=== PATIENT | female | born 1935 | race Caucasian/White ===

== ENCOUNTER 2018-12-21 13:31 | Inpatient (IN) | payer MEDICARE ==
[~2018-12-21] VITALS: Ht 157.5 cm; Wt 25.0 kg
--- NOTE | 2018-12-21 13:40 | NUR ---
ED Nurse Note: patient was brought by ambulance complaining of SOB, during assessment O2 sat was 80, patient was placed on 2 L of oxygen. AAO x 4, has unsteady gait, skin is dry intact. patient was placed on gown and connected to the monitor.
[2018-12-21] MEDS ORDERED: Nitroglycerin 2% oint pkt TOPIC ONE (13:45)
[2018-12-21 13:47] VITALS: BP 142/68
[2018-12-21] MEDS ORDERED: POTASSIUM CHLO20 ME1 ORAL (13:48)
[2018-12-21] MEDS ORDERED: PAMELOR25 MG ORAL (13:48)
[2018-12-21] MEDS ORDERED: ATORVASTATIN CA40 MG ORAL (13:48)
[2018-12-21] MEDS ORDERED: ELIQUIS2.5 MG PO (13:48)
[2018-12-21] MEDS ORDERED: TORSEMIDE10 MG PO (13:48)
[2018-12-21] MEDS ORDERED: DIGOXIN0.125 MG/2 ORAL (13:48)
[2018-12-21] MEDS ORDERED: LIBRIUM25 MG ORAL (13:48)
[2018-12-21] MEDS ORDERED: OMEPRAZOLE20 M2 ORAL (13:48)
[2018-12-21] MEDS ORDERED: AMLODIPINE BESY10 MG ORAL (13:48)
[2018-12-21] MEDS ORDERED: DICLOFENAC SODI25 MG ORAL (13:48)
[2018-12-21] MEDS ORDERED: ASPIR-LOW81 MG ORAL (13:48)
--- NOTE | 2018-12-21 13:48 | Emergency Room Report ---
History of Present Illness General Chief Complaint: Dyspnea/Respdistress Source: Patient, EMS Present Illness HPI Patient presents with 3 weeks of increasing shortness of breath. She reports orthopnea and dyspnea on exertion. In addition she has edema in her legs. Her doctor told her this morning that she has congestive heart failure. She's taking Lasix 10 mg but she feels is not strong enough. The patient has a history of atrial fibrillation. She's on Eliquis. The patient's had open heart surgery 4 years ago. She denies chest pain. She' s felt cold but denies fever. She denies nausea vomiting diarrhea dysuria. No anxiety or depression. Allergies: Coded Allergies: No Known Allergies (Unverified , 12/21/18) Patient History Past Medical History: see triage record Past Surgical History: CABG Social History: Denies: smoking - former Social History Narrative Born in [place] - assisted living Reviewed Nursing Documentation: PMH: Agreed; PSxH: Agreed Nursing Documentation-PMH Hx Cardiac Problems: Yes Review of Systems All Other Systems: negative except mentioned in HPI Physical Exam Vital Signs Date Time Temp Pulse Resp B/P (MAP) Pulse Ox O2 Delivery O2 Flow Rate FiO2 12/21/18 13:25 97.9 63 16 134/80 96 Nasal Cannula 4.0 Sp02 EP Interpretation: reviewed, abnormal - Interpreted as low by me General Appearance: well appearing, no apparent distress, GCS 15, thin Head: normocephalic Eyes: bilateral eye normal inspection, bilateral eye PERRL ENT: moist mucus membranes Neck: supple Respiratory: no rhonchi, no respiratory distress, no accessory muscle use, decreased breath sounds - Left, rales Cardiovascular #1: regular rate, rhythm, edema - 1+ bilaterally Cardiovascular #2: 2+ radial (R) Gastrointestinal: normal inspection, normal bowel sounds, non tender, no mass, non-distended Musculoskeletal: back normal, gait/station normal, normal range of motion Neurologic: alert, oriented x3, grossly normal Psychiatric: mood/affect normal Skin: normal inspection, warm/dry Medical Decision Making Diagnostic Impression: Primary Impression: CHF (congestive heart failure) Qualified Codes: I50.9 - Heart failure, unspecified Additional Impressions: NSTEMI (non-ST elevated myocardial infarction) Pleural effusion Atrial fibrillation Qualified Codes: I48.91 - Unspecified atrial fibrillation ER Course Patient presents with 3 weeks of increasing dyspnea without chest pain. Differential includes acute microinfarction, congestive heart failure, or embolus amongst others. The patient is taking L requests and therefore pulmonary bolus and is less likely. Based on her exam she is in heart failure. Evaluation will be with EKG, chest x-ray and labs. The patient will be given a dose of Lasix and also Nitrol paste. Patient is placed on a narrative writer. EKG with atrial fibrillation without acute changes. Chest x-ray with congestive failure and a large left-sided effusion. When the patient is told about atrial fibrillation she queries "Again? Lab called with positive troponin and aspirin is ordered. Patient diuresing. Patient improved but needs continued cardiac monitoring and repeat troponin determinations. Admit to telemetry Laboratory Tests Test 12/21/18 14:00 12/21/18 14:48 12/21/18 18:45 12/22/18 05:05 White Blood Count 5.3 K/UL (4.8-10.8) 5.0 K/UL (4.8-10.8) Red Blood Count 3.97 M/UL (4.20-5.40) L 3.60 M/UL (4.20-5.40) L Hemoglobin 11.2 G/DL (12.0-16.0) L 10.2 G/DL (12.0-16.0) L Hematocrit 35.9 % (37.0-47.0) L 32.8 % (37.0-47.0) L Mean Corpuscular Volume 90 FL (80-99) 91 FL (80-99) Mean Corpuscular Hemoglobin 28.3 PG (27.0-31.0) 28.3 PG (27.0-31.0) Mean Corpuscular Hemoglobin Concent 31.3 G/DL (32.0-36.0) L 31.1 G/DL (32.0-36.0) L Red Cell Distribution Width 16.9 % (11.6-14.8) H 16.9 % (11.6-14.8) H Platelet Count 327 K/UL (150-450) 275 K/UL (150-450) Mean Platelet Volume 5.2 FL (6.5-10.1) L 5.3 FL (6.5-10.1) L Neutrophils (%) (Auto) 81.7 % (45.0-75.0) H 81.0 % (45.0-75.0) H Lymphocytes (%) (Auto) 6.2 % (20.0-45.0) L 6.7 % (20.0-45.0) L Monocytes (%) (Auto) 8.8 % (1.0-10.0) 7.6 % (1.0-10.0) Eosinophils (%) (Auto) 1.7 % (0.0-3.0) 3.2 % (0.0-3.0) H Basophils (%) (Auto) 1.7 % (0.0-2.0) 1.5 % (0.0-2.0) Prothrombin Time 12.4 SEC (9.30-11.50) H Prothrombin Time INR 1.2 (0.9-1.1) H PTT 29 SEC (23-33) Sodium Level 136 MMOL/L (136-145) 141 MMOL/L (136-145) Potassium Level 5.0 MMOL/L (3.5-5.1) 4.0 MMOL/L (3.5-5.1) Chloride Level 102 MMOL/L (98-107) 104 MMOL/L (98-107) Carbon Dioxide Level 24 MMOL/L (21-32) 30 MMOL/L (21-32) Anion Gap 10 mmol/L (5-15) 7 mmol/L (5-15) Blood Urea Nitrogen 23 mg/dL (7-18) H 20 mg/dL (7-18) H Creatinine 1.2 MG/DL (0.55-1.30) 1.3 MG/DL (0.55-1.30) Estimate Glomerular Filtration Rate mL/min (>60) mL/min (>60) Glucose Level 94 MG/DL (74-106) 100 MG/DL (74-106) Calcium Level 8.8 MG/DL (8.5-10.1) 8.0 MG/DL (8.5-10.1) L Total Bilirubin 0.3 MG/DL (0.2-1.0) Aspartate Amino Transferase (AST) 38 U/L (15-37) H Alanine Aminotransferase (ALT) 23 U/L (12-78) Alkaline Phosphatase 130 U/L (46-116) H Total Creatine Kinase 60 U/L (26-308) Troponin I 0.068 ng/mL (0.000-0.056) 0.074 ng/mL (0.000-0.056) 0.055 ng/mL (0.000-0.056) Pro-B-Type Natriuretic Peptide 3072 pg/mL (0-125) H Total Protein 8.1 G/DL (6.4-8.2) Albumin 3.1 G/DL (3.4-5.0) L 2.9 G/DL (3.4-5.0) L Globulin 5.0 g/dL Albumin/Globulin Ratio 0.6 (1.0-2.7) L Urine Color Pale yellow Urine Appearance Clear Urine pH 6 (4.5-8.0) Urine Specific Orange 1.005 (1.005-1.035) Urine Protein Negative (NEGATIVE) Urine Glucose (UA) Negative (NEGATIVE) Urine Ketones Negative (NEGATIVE) Urine Blood Negative (NEGATIVE) Urine Nitrite Negative (NEGATIVE) Urine Bilirubin Negative (NEGATIVE) Urine Urobilinogen Normal MG/DL (0.0-1.0) Urine Leukocyte Esterase Negative (NEGATIVE) Phosphorus Level 4.2 MG/DL (2.5-4.9) Test 12/22/18 10:45 Prothrombin Time 12.6 SEC (9.30-11.50) H Prothrombin Time INR 1.2 (0.9-1.1) H PTT 31 SEC (23-33) EKG Diagnostic Results Rate: other Rhythm: other - Atrial fibrillation ST Segments: no acute changes ASA given to the pt in ED: Yes Rhythm Strip Diag. Results EP Interpretation: yes Rhythm: no PVC's, no ectopy, other - Atrial fibrillation Chest X-Ray Diagnostic Results Chest X-Ray Diagnostic Results : Chest X-Ray Ordered: Yes # of Views/Limited/Complete: 1 View Indication: Shortness of Breath EP Interpretation: Yes Interpretation: no pneumothorax, other - chf and L effusion Impression: Other Electronically Signed by: Electronically signed by Yash Lawrence MD Last Vital Signs Date Time Temp Pulse Resp B/P (MAP) Pulse Ox O2 Delivery O2 Flow Rate FiO2 12/22/18 08:54 78 125/82 12/22/18 08:02 Non-Rebreather 15.0 100 12/22/18 08:00 97.6 14 100 Status: improved Disposition: ADMITTED INPATIENT Condition: Serious Yash Lawrence MD Dec 21, 2018 13:48
[2018-12-21 14:07] LABS: BASOPHILS % (AUTO) 1.7 % (0.0-2.0); EOSINOPHILS % (AUTO) 1.7 % (0.0-3.0); HEMATOCRIT 35.9 % (37.0-47.0); HEMOGLOBIN 11.2 G/DL (12.0-16.0); LYMPHOCYTES % (AUTO) 6.2 % (20.0-45.0); MEAN CORPUSCULAR VOLUME 90 FL (80-99); MONOCYTES % (AUTO) 8.8 % (1.0-10.0); NEUTROPHILS % (AUTO) 81.7 % (45.0-75.0); PLATELET COUNT 327 K/UL (150-450); RED BLOOD COUNT 3.97 M/UL (4.20-5.40); RED CELL DISTRIBUTION WIDTH 16.9 % (11.6-14.8); WHITE BLOOD COUNT 5.3 K/UL (4.8-10.8)
[2018-12-21 14:16] LABS: ANION GAP 10 mmol/L (5-15); BLOOD UREA NITROGEN 23 mg/dL (7-18); CALCIUM 8.8 MG/DL (8.5-10.1); CARBON DIOXIDE 24 MMOL/L (21-32); CHLORIDE 102 MMOL/L (98-107); CREATININE 1.2 MG/DL (0.55-1.30); INR 1.2 (0.9-1.1); SODIUM 136 MMOL/L (136-145)
[2018-12-21 14:27] LABS: ALANINE AMINOTRANSFERASE 23 U/L (12-78); ALBUMIN 3.1 G/DL (3.4-5.0); ALBUMIN/GLOBULIN RATIO 0.6 (1.0-2.7); ALKALINE PHOSPHATASE 130 U/L (46-116); ASPARTATE AMINO TRANSFERASE 38 U/L (15-37); BILIRUBIN,TOTAL 0.3 MG/DL (0.2-1.0); CREATINE KINASE 60 U/L (26-308)
--- NOTE | 2018-12-21 14:35 | Diagnostic Imaging Report ---
Indication: Cough Technique: One view of the chest Comparison: none Findings: There is a large left pleural effusion. There may be a small right pleural effusion. There is equivocal minimal interstitial congestion. No focal airspace consolidation Impression: Large left and possible small right pleural effusions Equivocal minimal interstitial congestion-correlate with clinical findings
[2018-12-21 15:08] LABS: APPEARANCE,URINE CLEAR; BILIRUBIN, URINE NEGATIVE (NEGATIVE); COLOR,URINE PALE YELLOW; GLUCOSE, URINE (UA) NEGATIVE (NEGATIVE); KETONES,URINE NEGATIVE (NEGATIVE); LEUKOCYTE ESTERASE ,URINE NEGATIVE (NEGATIVE); NITRITE,URINE NEGATIVE (NEGATIVE); PH,URINE 6 (4.5-8.0); PROTEIN,URINE NEGATIVE (NEGATIVE); UROBILINOGEN,URINE NORMAL MG/DL (0.0-1.0)
--- NOTE | 2018-12-21 15:20 | NUR ---
ED Nurse Note: patient void 400mL
[2018-12-21 16:13] VITALS: BP 119/50
--- NOTE | 2018-12-21 16:14 | NUR ---
ED Nurse Note: patient in the bed sleeping, VSS
--- NOTE | 2018-12-21 16:23 | NUR ---
ED Nurse Note: patient will be admited to SDU , gave report to SUMI Liz
--- NOTE | 2018-12-21 16:32 | NUR ---
NURSE NOTES: Received patient from [facility]. On 2L nasal cannula. Her 02 sat was 80%. Changed it to Nonrebreather mask to 15L and 02 sat was 94%. Patient was able to ambulate from the ER gurney to the bed. AOx4. Verbally responsive. IV site is asymptomatic. Per ER nurse, swabs were done and sent to the lab. Will call Dr. Mckeon for admission orders.
--- NOTE | 2018-12-21 16:32 | NUR ---
ED Nurse Note: report was given to Shalonda patient transfered to SDU.all belongings were given to the patient VSS
[2018-12-21 16:45] VITALS: BP 105/75
--- NOTE | 2018-12-21 18:00 | NUR ---
NURSE NOTES: Called Dr. Mckeon for admission orders. Awaiting for call back.
[2018-12-21] MEDS ORDERED: Albuterol/Ipratropium 3ml neb HHN PRN (18:30)
--- NOTE | 2018-12-21 18:45 | NUR ---
CASE MANAGEMENT: INITIAL REVIEW 12/21/2018 83 YO Karolina SULLIVAN FROM [facility] CC: DYSPNEA PMHx: CABG SI:COPD EXACERBATION. NSTEMI T 97.9 HR 63 RR 16 B/P 134/80 SATS 96% ON 4L/NC BUN 23 AST 38 ALP 130 TROPONIN 0.068 BNP 3072 IS:NITRO TOP X1 LASIX IV X1 ASA PO X1 PATIENT ADMITTED TO [facility] 12/21/2018 @ 2586 DCP: PATIENT TO BE DISCHARGED TO SNF ONCE MEDICALLY CLEARED. PLAN OF CARE: VENOUS DUPLEX XRAY 2D ECHO Addendum: 12/23/18 at 0810 by Shari Aguila CM INTERQUAL MET FOR ACUTE
--- NOTE | 2018-12-21 19:15 | NUR ---
NURSE NOTES: Received report from Matty Estrada RN. Patient is awake in bed, A/O x4. No s/s of acute distress noted. telemetry monitor shows a. fib. Saturating well on 15L O2 via non-rebreather mask. Right AC 20g IV saline lock, intact and patent. Bed locked in lowest position with side rails up x2. Call light left within reach. Will continue to monitor.
--- NOTE | 2018-12-21 19:15 | NUR ---
HAND-OFF: Report given to SUMI Pinto. Patient stable. Aware of the current Troponin level and will let Dr. Amor know.
--- NOTE | 2018-12-21 19:37 | NUR ---
NURSE NOTES: Dr. Zuleyma MD made aware of patient's troponin trending up to 0.074. No new orders at this time. Will continue to monitor patient.
[2018-12-21 20:00] VITALS: BP 127/53
--- NOTE | 2018-12-21 20:47 | Cardiology Progress Note ---
Assessment/Plan Assessment/Plan afib perm on anticoag mvr biopropthetic p htn system htn anxiety cad neg ischmemia eval 03/2018 unkown detail left plrural effusion may need thoracentesis echo dirutic repeat enzyme follwo katiana [id number] Objective Last 24 Hour Vital Signs Date Time Temp Pulse Resp B/P (MAP) Pulse Ox O2 Delivery O2 Flow Rate FiO2 12/21/18 19:10 Non-Rebreather 15.0 12/21/18 19:10 92 Non-Rebreather 15.0 12/21/18 18:42 78 12/21/18 16:45 96.8 74 24 105/75 (85) 92 12/21/18 16:39 Non-Rebreather 15.0 12/21/18 16:32 98.0 88 18 121/72 100 Room Air 12/21/18 16:13 97.8 73 13 119/50 95 Nasal Cannula 2.0 12/21/18 14:03 142/68 12/21/18 13:47 98.0 67 16 142/68 98 Nasal Cannula 2.0 12/21/18 13:45 67 16 Nasal Cannula 4.0 12/21/18 13:25 97.9 63 16 134/80 96 Nasal Cannula 4.0 Laboratory Tests Test 12/21/18 14:00 12/21/18 14:48 12/21/18 18:45 White Blood Count 5.3 K/UL (4.8-10.8) Red Blood Count 3.97 M/UL (4.20-5.40) L Hemoglobin 11.2 G/DL (12.0-16.0) L Hematocrit 35.9 % (37.0-47.0) L Mean Corpuscular Volume 90 FL (80-99) Mean Corpuscular Hemoglobin 28.3 PG (27.0-31.0) Mean Corpuscular Hemoglobin Concent 31.3 G/DL (32.0-36.0) L Red Cell Distribution Width 16.9 % (11.6-14.8) H Platelet Count 327 K/UL (150-450) Mean Platelet Volume 5.2 FL (6.5-10.1) L Neutrophils (%) (Auto) 81.7 % (45.0-75.0) H Lymphocytes (%) (Auto) 6.2 % (20.0-45.0) L Monocytes (%) (Auto) 8.8 % (1.0-10.0) Eosinophils (%) (Auto) 1.7 % (0.0-3.0) Basophils (%) (Auto) 1.7 % (0.0-2.0) Prothrombin Time 12.4 SEC (9.30-11.50) H Prothromb Time International Ratio 1.2 (0.9-1.1) H Activated Partial Thromboplast Time 29 SEC (23-33) Sodium Level 136 MMOL/L (136-145) Potassium Level 5.0 MMOL/L (3.5-5.1) Chloride Level 102 MMOL/L (98-107) Carbon Dioxide Level 24 MMOL/L (21-32) Anion Gap 10 mmol/L (5-15) Blood Urea Nitrogen 23 mg/dL (7-18) H Creatinine 1.2 MG/DL (0.55-1.30) Estimat Glomerular Filtration Rate mL/min (>60) Glucose Level 94 MG/DL (74-106) Calcium Level 8.8 MG/DL (8.5-10.1) Total Bilirubin 0.3 MG/DL (0.2-1.0) Aspartate Amino Transf (AST/SGOT) 38 U/L (15-37) H Alanine Aminotransferase (ALT/SGPT) 23 U/L (12-78) Alkaline Phosphatase 130 U/L (46-116) H Total Creatine Kinase 60 U/L (26-308) Troponin I 0.068 ng/mL (0.000-0.056) 0.074 ng/mL (0.000-0.056) Pro-B-Type Natriuretic Peptide 3072 pg/mL (0-125) H Total Protein 8.1 G/DL (6.4-8.2) Albumin 3.1 G/DL (3.4-5.0) L Globulin 5.0 g/dL Albumin/Globulin Ratio 0.6 (1.0-2.7) L Urine Color Pale yellow Urine Appearance Clear Urine pH 6 (4.5-8.0) Urine Specific Edwards 1.005 (1.005-1.035) Urine Protein Negative (NEGATIVE) Urine Glucose (UA) Negative (NEGATIVE) Urine Ketones Negative (NEGATIVE) Urine Blood Negative (NEGATIVE) Urine Nitrite Negative (NEGATIVE) Urine Bilirubin Negative (NEGATIVE) Urine Urobilinogen Normal MG/DL (0.0-1.0) Urine Leukocyte Esterase Negative (NEGATIVE) Mike Long MD Dec 21, 2018 20:47
[2018-12-21] MEDS: Heparin 5000 units/ml inj SUBQ SCH (21:46)
[2018-12-22] VITALS: BP 135/51
[2018-12-22 04:00] VITALS: BP 122/73
--- NOTE | 2018-12-22 05:00 | Consultation ---
DATE OF CONSULTATION: 12/21/2018 CARDIOLOGY CONSULTATION CONSULTING PHYSICIAN: Mike Long M.D. REFERRING PHYSICIAN: Mariya Amor M.D. REASON FOR REFERRAL: Shortness of breath and congestive heart failure. HISTORY OF PRESENT ILLNESS: This is an 83-year-old female, who is here to discuss some medical problems. The patient apparently has been having shortness of breath for the past two weeks. Her primary care doctor told her to go to the emergency room. So, she came up today. She does not have any PND or orthopnea. No palpitation. No pain in her chest although she does indicate occasionally she has some squeezing sensation although she does not recall when those occur, how long they last, or what the nature of this symptom is. If she cannot sleep she gets up and walks around. PAST MEDICAL HISTORY: Positive for history of high cholesterol. No diabetes. No hypertension. No heart attack. She does have uterine cancer, status post radiation. No stroke, hepatitis, or tuberculosis. No asthma or emphysema. No ulcers. No kidney problems, liver problems, or thyroid problems. She has history of anemia. No HIV/AIDS or blood clots or bleeding disorder. No history of heart failure. She does have a history of heart murmur. The patient has a history of atrial fibrillation. She has a history of coronary artery disease and reportedly she had a negative stress test in March 2018, carotid stenosis bilaterally 50% to 60%, history of bioprosthetic mitral valve replacement, systemic hypertension, history of peptic ulcer disease, pulmonary hypertension, and hyperlipidemia as documented in the patient's old chart as far as past medical problems. She also has a history of anxiety. MEDICATIONS: Norvasc 10 mg daily, aspirin 81 mg, Lipitor 40 mg, chlordiazepoxide 25 mg daily, diclofenac cream, digoxin 0.125 mg, Eliquis 2.5 mg twice daily, nortriptyline 50 mg daily, omeprazole 20 mg, potassium chloride 20 mEq daily, psyllium, and torsemide 10 mg every evening. ALLERGIES: She is not allergic to any medications. SOCIAL HISTORY: She used to smoke and drink some 50 years ago. Does not do any more. She lives in a convalescent facility. REVIEW OF SYSTEMS: GASTROINTESTINAL: Positive for constipation. GENITOURINARY: Negative. PULMONARY: Denies any coughing or wheezing. CONSTITUTIONAL: Though she has had some chills, no fevers. NEUROLOGICAL: Negative. PHYSICAL EXAMINATION: GENERAL: Shows to be an elderly female, in no respiratory distress. She is on a face mask and her oxygen saturation drops down to 88%. NECK: Supple. No jugular venous distention. LUNGS: Clear to auscultation and percussion. To the point I cannot evaluate as the patient is lying down for venous duplex study. CARDIAC: Slightly irregular rhythm. She does have a systolic ejection murmur noted at the aortic valve. No RV lifts, heaves, or thrills. ABDOMEN: Soft, nontender. Positive bowel sounds. EXTREMITIES: There is no edema. NEUROLOGIC: She is awake, alert, responsive, and in no respiratory distress. LABORATORY AND DIAGNOSTIC DATA: White count 5.3, hemoglobin 11.2, and platelet count of 327. Sodium is 136, potassium 5.0, chloride 102, bicarb 24, BUN of 23, creatinine 1.2, and glucose of 94. AST of 38, ALT of 23, and alkaline phosphatase was 130. ProBNP of 3072. Troponin 0.068, 0.074. INR is 1.1 and PTT of 28. Urinalysis is unremarkable. Chest x-ray performed in the emergency room shows large left pleural effusion, just small right pleural effusion, which is equivocal and interstitial congestion and no focal consolidation have been noted. Her electrocardiogram shows atrial fibrillation, ventricular response appears to be controlled. There is some delay in R-wave progression suggestive of possible old anterior injury. There are some biphasic T-waves in II, III, and aVF being noted. Her chest x-ray shows also a bioprosthesis in the mitral valve position, sternal wires, and left-sided pleural effusion. ASSESSMENT AND PLAN: 1. Dyspnea. 2. Pleural effusion. 3. History of mitral valve replacement, bioprosthetic. 4. Aortic stenosis. 5. History of coronary artery disease. Reportedly negative stress test in March 2018, details of which are unknown. 6. Systemic hypertension. 7. Pulmonary hypertension. 8. Anxiety. 9. History of carotid stenosis. Dr. Amor, this patient was seen in cardiac consultation. The patient will likely require thoracentesis and she should be continued on diuretics and echocardiogram will be evaluated for evaluation of mitral valve regurgitation and pulmonary hypertension as well as aortic stenosis degree and left ventricular systolic function. Diuretics change will be as the patient's blood pressure allows. Heart rate is controlled with medications as being performed already. Serial enzymes and EKG will be performed. Mike Long M.D. DR: MILI JOB#: [id number] CC:
[2018-12-22] MEDS: Miralax 17gm pkt ORAL PRN (05:43)
[2018-12-22 06:14] LABS: BASOPHILS % (AUTO) 1.5 % (0.0-2.0); EOSINOPHILS % (AUTO) 3.2 % (0.0-3.0); HEMATOCRIT 32.8 % (37.0-47.0); HEMOGLOBIN 10.2 G/DL (12.0-16.0); LYMPHOCYTES % (AUTO) 6.7 % (20.0-45.0); MEAN CORPUSCULAR VOLUME 91 FL (80-99); MONOCYTES % (AUTO) 7.6 % (1.0-10.0); PLATELET COUNT 275 K/UL (150-450); RED CELL DISTRIBUTION WIDTH 16.9 % (11.6-14.8)
[2018-12-22 06:35] LABS: ALBUMIN 2.9 G/DL (3.4-5.0); ANION GAP 7 mmol/L (5-15); BLOOD UREA NITROGEN 20 mg/dL (7-18); CARBON DIOXIDE 30 MMOL/L (21-32); CHLORIDE 104 MMOL/L (98-107); CREATININE 1.3 MG/DL (0.55-1.30); PHOSPHORUS 4.2 MG/DL (2.5-4.9); SODIUM 141 MMOL/L (136-145)
--- NOTE | 2018-12-22 07:10 | NUR ---
HAND-OFF: Report given to Matty Estrada RN.
--- NOTE | 2018-12-22 07:11 | NUR ---
NURSE NOTES: Received patient from SUMI Pinto. Patient in bed and asleep. On nonrebreather mask 15L 02 sat of 100%. gambling monitor in placed. Bedside commode next to bed. IV site asymptomatic. Bed in lowest position with side rails up. Will continue to follow plan of care.
[2018-12-22 08:00] VITALS: BP 125/82
--- NOTE | 2018-12-22 08:37 | NUR ---
RADIOLOGY DEPT CHEST X-RAY DONE.-P.DYE
[2018-12-22] MEDS: Heparin 5000 units/ml inj SUBQ SCH (08:53)
[2018-12-22] MEDS: Eliquis 2.5mg tablet ORAL SCH ×2 (08:53→17:41)
[2018-12-22] MEDS: Aspirin EC 81mg tab ORAL SCH (08:54)
[2018-12-22] MEDS: Nortriptyline 25mg cap ORAL SCH (08:54)
--- NOTE | 2018-12-22 09:06 | Diagnostic Imaging Report ---
Indication: Shortness of breath Technique: One view of the chest Comparison: 12/21/2018 Findings: Large left pleural effusion persists but may be slightly smaller. There is suggestion of increasing hazy parenchymal opacity bilaterally the heart is probably enlarged. There is a prosthetic valve and a left atrial appendage. Again demonstrated Impression: Large left pleural effusion, possibly improved over one Increasing bilateral hazy parenchymal opacity
--- NOTE | 2018-12-22 10:26 | Consultation ---
History of Present Illness General Date patient seen: Dec 22, 2018 Chief Complaint: Dyspnea/Respdistress Present Illness HPI 83 year old female with hx of CAD, afib, s/p CABG, cardiac Valve replacement a few years ago, presented to [facility] [place] with CC of shortness of breath, She was diagnosed to have pulmonary edema and Left effusion. She is admitted to telemetry for further treatment. Allergies: Coded Allergies: No Known Allergies (Unverified , 12/21/18) Medication History Scheduled Amlodipine Besylate* (Amlodipine Besylate*), 10 MG ORAL DAILY, (Reported) Aspirin* (Aspir-Low*), 81 MG ORAL DAILY, (Reported) Atorvastatin Calcium* (Atorvastatin Calcium*), 40 MG ORAL BEDTIME, (Reported) Chlordiazepoxide (Chlordiazepoxide HCl), 25 MG ORAL DAILY, (Reported) Diclofenac Sod* (Voltaren*), 25 MG ORAL THREE TIMES A DAY, (Reported) Digoxin* (Digoxin*), 0.125 MG ORAL DAILY, (Reported) Nortriptyline Hcl* (Pamelor*), 50 MG ORAL DAILY, (Reported) Omeprazole (Omeprazole), 20 MG ORAL DAILY, (Reported) Potassium Chloride* (K-Dur*), 20 MEQ ORAL DAILY, (Reported) Torsemide* (Demadex*), 10 MG PO DAILY, (Reported) Miscellaneous Medications Apixaban (Eliquis), 2.5 MG PO, (Reported) Patient History Healthcare decision maker Ayaka Grayson Resuscitation status Full Code Advanced Directive on File Past Medical/Surgical History Past Medical/Surgical History: (1) CAD (coronary artery disease) (2) Hx of CABG Family History Family History: (1) Hx of CABG (2) CAD (coronary artery disease) Review of Systems All Other Systems: negative except mentioned in HPI Physical Exam General Appearance: WD/WN Lines, tubes and drains: peripheral HEENT: normocephalic, atraumatic Neck: non-tender, normal alignment Respiratory/Chest: chest wall non-tender, lungs clear Breasts: no masses Cardiovascular/Chest: normal peripheral pulses Abdomen: normal bowel sounds, non tender Genitourinary/Rectal: normal genital exam Extremities: normal range of motion Skin Exam: normal pigmentation, cyanotic 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 normal Last 24 Hour Vital Signs Date Time Temp Pulse Resp B/P (MAP) Pulse Ox O2 Delivery O2 Flow Rate FiO2 12/22/18 08:54 78 125/82 12/22/18 08:02 Non-Rebreather 15.0 100 12/22/18 08:00 97.6 78 14 125/82 (96) 100 12/22/18 08:00 Non-Rebreather 15.0 12/22/18 04:00 Non-Rebreather 15.0 12/22/18 04:00 97.7 67 16 122/73 (89) 98 12/22/18 03:40 71 12/22/18 00:00 Non-Rebreather 15.0 12/22/18 00:00 97.4 70 18 135/51 (79) 98 12/21/18 23:46 65 12/21/18 20:00 Non-Rebreather 15.0 12/21/18 20:00 97.0 74 18 127/53 (77) 94 12/21/18 19:10 Non-Rebreather 15.0 12/21/18 19:10 92 Non-Rebreather 15.0 12/21/18 19:01 69 12/21/18 18:42 78 12/21/18 16:45 96.8 74 24 105/75 (85) 92 12/21/18 16:39 Non-Rebreather 15.0 12/21/18 16:32 98.0 88 18 121/72 100 Room Air 12/21/18 16:13 97.8 73 13 119/50 95 Nasal Cannula 2.0 12/21/18 14:03 142/68 12/21/18 13:47 98.0 67 16 142/68 98 Nasal Cannula 2.0 12/21/18 13:45 67 16 Nasal Cannula 4.0 12/21/18 13:25 97.9 63 16 134/80 96 Nasal Cannula 4.0 Intake and Output 12/21/18 12/22/18 18:59 06:59 Intake Total 20 ml 260 ml Output Total 0 ml 400 ml Balance 20 ml -140 ml Intake Oral 20 ml 260 ml Output Urine Total 0 ml 400 ml # Voids 1 2 Laboratory Tests Test 12/21/18 14:00 12/21/18 14:48 12/21/18 18:45 12/22/18 05:05 White Blood Count 5.3 K/UL (4.8-10.8) 5.0 K/UL (4.8-10.8) Red Blood Count 3.97 M/UL (4.20-5.40) L 3.60 M/UL (4.20-5.40) L Hemoglobin 11.2 G/DL (12.0-16.0) L 10.2 G/DL (12.0-16.0) L Hematocrit 35.9 % (37.0-47.0) L 32.8 % (37.0-47.0) L Mean Corpuscular Volume 90 FL (80-99) 91 FL (80-99) Mean Corpuscular Hemoglobin 28.3 PG (27.0-31.0) 28.3 PG (27.0-31.0) Mean Corpuscular Hemoglobin Concent 31.3 G/DL (32.0-36.0) L 31.1 G/DL (32.0-36.0) L Red Cell Distribution Width 16.9 % (11.6-14.8) H 16.9 % (11.6-14.8) H Platelet Count 327 K/UL (150-450) 275 K/UL (150-450) Mean Platelet Volume 5.2 FL (6.5-10.1) L 5.3 FL (6.5-10.1) L Neutrophils (%) (Auto) 81.7 % (45.0-75.0) H 81.0 % (45.0-75.0) H Lymphocytes (%) (Auto) 6.2 % (20.0-45.0) L 6.7 % (20.0-45.0) L Monocytes (%) (Auto) 8.8 % (1.0-10.0) 7.6 % (1.0-10.0) Eosinophils (%) (Auto) 1.7 % (0.0-3.0) 3.2 % (0.0-3.0) H Basophils (%) (Auto) 1.7 % (0.0-2.0) 1.5 % (0.0-2.0) Prothrombin Time 12.4 SEC (9.30-11.50) H Prothromb Time International Ratio 1.2 (0.9-1.1) H Activated Partial Thromboplast Time 29 SEC (23-33) Sodium Level 136 MMOL/L (136-145) 141 MMOL/L (136-145) Potassium Level 5.0 MMOL/L (3.5-5.1) 4.0 MMOL/L (3.5-5.1) Chloride Level 102 MMOL/L (98-107) 104 MMOL/L (98-107) Carbon Dioxide Level 24 MMOL/L (21-32) 30 MMOL/L (21-32) Anion Gap 10 mmol/L (5-15) 7 mmol/L (5-15) Blood Urea Nitrogen 23 mg/dL (7-18) H 20 mg/dL (7-18) H Creatinine 1.2 MG/DL (0.55-1.30) 1.3 MG/DL (0.55-1.30) Estimat Glomerular Filtration Rate mL/min (>60) mL/min (>60) Glucose Level 94 MG/DL (74-106) 100 MG/DL (74-106) Calcium Level 8.8 MG/DL (8.5-10.1) 8.0 MG/DL (8.5-10.1) L Total Bilirubin 0.3 MG/DL (0.2-1.0) Aspartate Amino Transf (AST/SGOT) 38 U/L (15-37) H Alanine Aminotransferase (ALT/SGPT) 23 U/L (12-78) Alkaline Phosphatase 130 U/L (46-116) H Total Creatine Kinase 60 U/L (26-308) Troponin I 0.068 ng/mL (0.000-0.056) 0.074 ng/mL (0.000-0.056) 0.055 ng/mL (0.000-0.056) Pro-B-Type Natriuretic Peptide 3072 pg/mL (0-125) H Total Protein 8.1 G/DL (6.4-8.2) Albumin 3.1 G/DL (3.4-5.0) L 2.9 G/DL (3.4-5.0) L Globulin 5.0 g/dL Albumin/Globulin Ratio 0.6 (1.0-2.7) L Urine Color Pale yellow Urine Appearance Clear Urine pH 6 (4.5-8.0) Urine Specific [place] 1.005 (1.005-1.035) Urine Protein Negative (NEGATIVE) Urine Glucose (UA) Negative (NEGATIVE) Urine Ketones Negative (NEGATIVE) Urine Blood Negative (NEGATIVE) Urine Nitrite Negative (NEGATIVE) Urine Bilirubin Negative (NEGATIVE) Urine Urobilinogen Normal MG/DL (0.0-1.0) Urine Leukocyte Esterase Negative (NEGATIVE) Phosphorus Level 4.2 MG/DL (2.5-4.9) Height (Feet): 5 Height (Inches): 2.00 Weight (Pounds): 130 Medications Current Medications Medications (Trade) Dose Ordered Sig/Analia Route PRN Reason Start Time Stop Time Status Last Admin Dose Admin Acetaminophen (Tylenol) 650 mg Q4H PRN ORAL Fever 12/21/18 18:30 01/20/19 18:29 Albuterol/ Ipratropium (Albuterol/ Ipratropium) 3 ml Q4H PRN HHN Shortness of Breath 12/21/18 18:30 12/26/18 18:29 Amlodipine Besylate (Norvasc) 5 mg DAILY ORAL 12/22/18 09:00 01/21/19 08:59 12/22/18 08:54 Apixaban (Eliquis) 2.5 mg BID ORAL 12/22/18 09:00 01/21/19 08:59 12/22/18 08:53 Aspirin (Ecotrin) 81 mg DAILY ORAL 12/22/18 09:00 01/21/19 08:59 12/22/18 08:54 Dextrose (Dextrose 50%) 25 ml Q30M PRN IV Hypoglycemia 12/21/18 18:30 01/20/19 18:29 Dextrose (Dextrose 50%) 50 ml Q30M PRN IV Hypoglycemia 12/21/18 18:30 01/20/19 18:29 Furosemide (Lasix) 40 mg EVERY 8 HOURS IV 12/21/18 22:00 01/20/19 21:59 12/22/18 05:42 Heparin Sodium (Porcine) (Heparin 5000 units/ml) 5,000 units EVERY 12 HOURS SUBQ 12/21/18 21:00 01/20/19 20:59 12/22/18 08:53 Nortriptyline HCl (Pamelor) 50 mg DAILY ORAL 12/22/18 09:00 01/21/19 08:59 12/22/18 08:54 Ondansetron HCl (Zofran) 4 mg Q6H PRN IVP Nausea & Vomiting 12/21/18 18:30 01/20/19 18:29 Polyethylene Glycol (Miralax) 17 gm DAILYPRN PRN ORAL Constipation 12/21/18 18:30 01/20/19 18:29 12/22/18 05:43 Temazepam (Restoril) 15 mg HSPRN PRN ORAL Insomnia 12/21/18 18:30 12/28/18 18:29 Assessment/Plan Problem List: (1) Acute respiratory failure ICD Codes: J96.00 - Acute respiratory failure, unspecified whether with hypoxia or hypercapnia SNOMED: 13540826 (2) Pulmonary edema ICD Codes: J81.1 - Chronic pulmonary edema SNOMED: 69637527 (3) Pleural effusion ICD Codes: J90 - Pleural effusion, not elsewhere classified SNOMED: 15483208 (4) NSTEMI (non-ST elevated myocardial infarction) ICD Codes: I21.4 - Non-ST elevation (NSTEMI) myocardial infarction SNOMED: 76920748 (5) CAD (coronary artery disease) ICD Codes: I25.10 - Atherosclerotic heart disease of lummi coronary artery without angina pectoris SNOMED: 09502049 (6) Hx of CABG ICD Codes: Z95.1 - Presence of aortocoronary bypass graft SNOMED: 133572877, 507763259 Assessment/Plan diuresis, US of chest f/u cxr and bnp check electrolytes echocardiogram f/u Troponin taper down NRM Mariya Amor MD Dec 22, 2018 10:26
--- NOTE | 2018-12-22 10:30 | NUR ---
NURSE NOTES: Patient was changed from nonrebreather mask to nasal cannula 4L. But 02 sat was 83%. Changed back to nonrebreather mask and 02% sat went back up to 95%. Dr. Zuleyma madrigal.
[2018-12-22 11:30] LABS: INR 1.2 (0.9-1.1)
[2018-12-22 12:00] VITALS: BP 125/78
--- NOTE | 2018-12-22 14:11 | Cardiology Report ---
APPROVED REPORT EXAM: Two-dimensional and M-mode echocardiogram with Doppler and color Doppler. INDICATION LV FUNCTION M-Mode DIMENSIONS IVSd1.1 (0.7-1.1cm)Left Atrium (MM)3.2 (1.6-4.0cm) LVDd4.8 (3.5-5.6cm)Aortic Root3.3 (2.0-3.7cm) PWd0.9 (0.7-1.1cm)Aortic Cusp Exc.1.1 (1.5-2.0cm) IVSs1.1 cm LVDs3.5 (2.5-4.0cm) PWs1.1 cm Normal left ventricular chamber size, systolic function and wall motion . Left ventricular ejection fraction estimated to be 55%. Mild left ventricular hypertrophy by 2-D. Trivial pericardial effusion. Large plueral effusion present . Mild left atrial enlargement . Right cardiac chamber sizes are within normal limits. Heavily aortic valve calcification with decreased cusp excursion c/w aortic stenosis. Heavily thickened mitral valve leaflets with decreased cusp excursion. Prosthetic mitral valve with adequate function. . Mild mitral annulus and aortic root calcification. Pulmonic valve not well visualized. IVC at 2.0 cm without physiologic collapse suggestive of increased RA pressure.RAP estimated 15 mmhg. A color flow and spectral Doppler study was performed and revealed: Mild aortic regurgitation. Peak aortic valve gradient of 35 mm Hg and a mean of 18 mmHg. Aortic valve area 1.1 cm2 calculated by continuity equation, c/w moderate A.S. Mitral inflow velocities indicates possible pseudo normalization pattern implying moderately elevated left atrial pressure (Grade II ) Mild to moderate mitral regurgitation. Peak mitarl valve gradient of 20 mm Hg and a mean of 5 mmHg. Moderate tricuspid regurgitation. Tricuspid systolic velocities suggests peak right ventricular systolic pressure of 104mmHg,consistent with severe pulmonary hypertension .
[2018-12-22 16:00] VITALS: BP 126/77
--- NOTE | 2018-12-22 18:29 | History & Physical ---
History and Physical History & Physicial Moustapha Mckeon MD Dec 22, 2018 18:29
--- NOTE | 2018-12-22 19:00 | NUR ---
NURSE NOTES: Received patient in bed asleep. On NRM at 15L 02 sat of 100%. monitoring analyst showing. Bedside commode next to bed. IV site asymptomatic. Denies pain or discomfort. In no apparent distress. Bed in lowest position with side rails up. Will continue to follow POC.
--- NOTE | 2018-12-22 19:05 | NUR ---
HAND-OFF: Report given to SUMI Esquivel. Patient stable.
--- NOTE | 2018-12-22 19:14 | Cardiology Progress Note ---
Assessment/Plan Assessment/Plan 1. Dyspnea. 2. Pleural effusion. 3. History of mitral valve replacement, bioprosthetic. 4. Aortic stenosis. 5. History of coronary artery disease. Reportedly negative stress test in March 2018, details of which are unknown. 6. Systemic hypertension. 7. Pulmonary hypertension. 8. Anxiety. 9. History of carotid stenosis 10. moderate diastolic dysfucntion echo showed normal lv function sig pulm htn mild -mod gradient across the mitral and aortic valve responded to diuretic will further decrease norvasc to have room for diuretics trop now lower doubt the degree of pulm htn related to left heart causes may have an additional cause duplex neg may need to consider thoracentesis if persistent effusion despite diuretic or if bp limit diuretics will d/w dr espinoza regarding pulm htn mckeon and meds d/w pt and dtr at bedside nto seem any better objectively but subjectively feel better Objective Last 24 Hour Vital Signs Date Time Temp Pulse Resp B/P (MAP) Pulse Ox O2 Delivery O2 Flow Rate FiO2 12/22/18 16:00 97.7 82 15 126/77 (93) 98 12/22/18 16:00 Non-Rebreather 15.0 12/22/18 15:17 66 12/22/18 12:00 Non-Rebreather 15.0 12/22/18 12:00 97.7 70 16 125/78 (94) 99 12/22/18 11:40 73 12/22/18 08:54 78 125/82 12/22/18 08:02 Non-Rebreather 15.0 100 12/22/18 08:00 97.6 78 14 125/82 (96) 100 12/22/18 08:00 Non-Rebreather 15.0 12/22/18 07:42 76 12/22/18 04:00 Non-Rebreather 15.0 12/22/18 04:00 97.7 67 16 122/73 (89) 98 12/22/18 03:40 71 12/22/18 00:00 Non-Rebreather 15.0 12/22/18 00:00 97.4 70 18 135/51 (79) 98 12/21/18 23:46 65 12/21/18 20:00 Non-Rebreather 15.0 12/21/18 20:00 97.0 74 18 127/53 (77) 94 Intake and Output 12/21/18 12/22/18 19:00 07:00 Intake Total 20 ml 260 ml Output Total 0 ml 400 ml Balance 20 ml -140 ml Intake Oral 20 ml 260 ml Output Urine Total 0 ml 400 ml # Voids 1 2 Laboratory Tests Test 12/22/18 05:05 12/22/18 10:45 White Blood Count 5.0 K/UL (4.8-10.8) Red Blood Count 3.60 M/UL (4.20-5.40) L Hemoglobin 10.2 G/DL (12.0-16.0) L Hematocrit 32.8 % (37.0-47.0) L Mean Corpuscular Volume 91 FL (80-99) Mean Corpuscular Hemoglobin 28.3 PG (27.0-31.0) Mean Corpuscular Hemoglobin Concent 31.1 G/DL (32.0-36.0) L Red Cell Distribution Width 16.9 % (11.6-14.8) H Platelet Count 275 K/UL (150-450) Mean Platelet Volume 5.3 FL (6.5-10.1) L Neutrophils (%) (Auto) 81.0 % (45.0-75.0) H Lymphocytes (%) (Auto) 6.7 % (20.0-45.0) L Monocytes (%) (Auto) 7.6 % (1.0-10.0) Eosinophils (%) (Auto) 3.2 % (0.0-3.0) H Basophils (%) (Auto) 1.5 % (0.0-2.0) Sodium Level 141 MMOL/L (136-145) Potassium Level 4.0 MMOL/L (3.5-5.1) Chloride Level 104 MMOL/L (98-107) Carbon Dioxide Level 30 MMOL/L (21-32) Anion Gap 7 mmol/L (5-15) Blood Urea Nitrogen 20 mg/dL (7-18) H Creatinine 1.3 MG/DL (0.55-1.30) Estimat Glomerular Filtration Rate mL/min (>60) Glucose Level 100 MG/DL (74-106) Calcium Level 8.0 MG/DL (8.5-10.1) L Phosphorus Level 4.2 MG/DL (2.5-4.9) Troponin I 0.055 ng/mL (0.000-0.056) Albumin 2.9 G/DL (3.4-5.0) L Prothrombin Time 12.6 SEC (9.30-11.50) H Prothromb Time International Ratio 1.2 (0.9-1.1) H Activated Partial Thromboplast Time 31 SEC (23-33) Mike Long MD Dec 22, 2018 19:14
--- NOTE | 2018-12-22 19:15 | NUR ---
NURSE NOTES: Received report from Shalonda RN, pt. in bed awake, A/O x's 4- daughter at bedside, no signs of acute cardiac or respiratory distress noted, bed in lowest position and call light within easy reach, pt. is on monitor worker, pt. appears to be sating well on non-rebreather 15L sating at 99%- no distress noted, bed in lowest position and call light within easy reach, bed in lowest position, bed alarm on, side rails up x's3, Rt. Ac 20G Iv intact and patent, safety measures continued, will continue with plan of care.
[2018-12-22 20:00] VITALS: BP 120/56
--- NOTE | 2018-12-22 20:45 | Consultation ---
History of Present Illness General Chief Complaint: Dyspnea/Respdistress Present Illness HPI 83-year-old, female with a past medical history significant for anxiety, mdd hypertension; history of coronary artery disease, status post bypass surgery x2; and history of valve replacement, who was presented to the hospital complaining about shortness of breath. the pt is anxious and depressed Allergies: Coded Allergies: No Known Allergies (Unverified , 12/21/18) Medication History Scheduled Amlodipine Besylate (Norvasc), 2.5 MG ORAL DAILY Amlodipine Besylate* (Amlodipine Besylate*), 10 MG ORAL DAILY, (Reported) Aspirin* (Aspir-Low*), 81 MG ORAL DAILY, (Reported) Atorvastatin Calcium* (Atorvastatin Calcium*), 40 MG ORAL BEDTIME, (Reported) Chlordiazepoxide (Chlordiazepoxide HCl), 25 MG ORAL DAILY, (Reported) Diclofenac Sod* (Voltaren*), 25 MG ORAL THREE TIMES A DAY, (Reported) Digoxin* (Digoxin*), 0.125 MG ORAL DAILY, (Reported) Furosemide* (Lasix*), 40 MG ORAL DAILY Nortriptyline Hcl* (Pamelor*), 50 MG ORAL DAILY, (Reported) Omeprazole (Omeprazole), 20 MG ORAL DAILY, (Reported) Potassium Chloride* (K-Dur*), 20 MEQ ORAL DAILY, (Reported) Torsemide* (Demadex*), 10 MG PO DAILY, (Reported) Miscellaneous Medications Apixaban (Eliquis), 2.5 MG PO, (Reported) Patient History History Provided By: Patient, Medical Record, PMD Healthcare decision maker Ayaka Grayson Resuscitation status Full Code Advanced Directive on File Past Medical/Surgical History Past Medical/Surgical History: (1) CAD (coronary artery disease) (2) Acute respiratory failure (3) Pulmonary edema Review of Systems Constitutional: Reports: malaise, weakness Psychiatric: Reports: prior hx, anxiety, depressed feelings, emotional problems Physical Exam General Appearance: WD/WN, no apparent distress, alert, lethargic Last 24 Hour Vital Signs Date Time Temp Pulse Resp B/P (MAP) Pulse Ox O2 Delivery O2 Flow Rate FiO2 12/22/18 20:24 68 20 Venturi Mask 12.0 50 12/22/18 20:23 97 Venturi Mask 12.0 50 12/22/18 20:23 Venturi Mask 12.0 50 2/15/19 16:00 97.7 82 15 126/77 (93) 98 12/22/18 16:00 Non-Rebreather 15.0 12/22/18 15:17 66 12/22/18 12:00 Non-Rebreather 15.0 12/22/18 12:00 97.7 70 16 125/78 (94) 99 12/22/18 11:40 73 12/22/18 08:54 78 125/82 12/22/18 08:02 Non-Rebreather 15.0 100 12/22/18 08:00 97.6 78 14 125/82 (96) 100 12/22/18 08:00 Non-Rebreather 15.0 12/22/18 07:42 76 12/22/18 04:00 Non-Rebreather 15.0 12/22/18 04:00 97.7 67 16 122/73 (89) 98 12/22/18 03:40 71 12/22/18 00:00 Non-Rebreather 15.0 12/22/18 00:00 97.4 70 18 135/51 (79) 98 12/21/18 23:46 65 Intake and Output 12/21/18 12/22/18 19:00 07:00 Intake Total 20 ml 260 ml Output Total 0 ml 400 ml Balance 20 ml -140 ml Intake Oral 20 ml 260 ml Output Urine Total 0 ml 400 ml # Voids 1 2 Laboratory Tests Test 12/22/18 05:05 12/22/18 10:45 White Blood Count 5.0 K/UL (4.8-10.8) Red Blood Count 3.60 M/UL (4.20-5.40) L Hemoglobin 10.2 G/DL (12.0-16.0) L Hematocrit 32.8 % (37.0-47.0) L Mean Corpuscular Volume 91 FL (80-99) Mean Corpuscular Hemoglobin 28.3 PG (27.0-31.0) Mean Corpuscular Hemoglobin Concent 31.1 G/DL (32.0-36.0) L Red Cell Distribution Width 16.9 % (11.6-14.8) H Platelet Count 275 K/UL (150-450) Mean Platelet Volume 5.3 FL (6.5-10.1) L Neutrophils (%) (Auto) 81.0 % (45.0-75.0) H Lymphocytes (%) (Auto) 6.7 % (20.0-45.0) L Monocytes (%) (Auto) 7.6 % (1.0-10.0) Eosinophils (%) (Auto) 3.2 % (0.0-3.0) H Basophils (%) (Auto) 1.5 % (0.0-2.0) Sodium Level 141 MMOL/L (136-145) Potassium Level 4.0 MMOL/L (3.5-5.1) Chloride Level 104 MMOL/L (98-107) Carbon Dioxide Level 30 MMOL/L (21-32) Anion Gap 7 mmol/L (5-15) Blood Urea Nitrogen 20 mg/dL (7-18) H Creatinine 1.3 MG/DL (0.55-1.30) Estimat Glomerular Filtration Rate mL/min (>60) Glucose Level 100 MG/DL (74-106) Calcium Level 8.0 MG/DL (8.5-10.1) L Phosphorus Level 4.2 MG/DL (2.5-4.9) Troponin I 0.055 ng/mL (0.000-0.056) Albumin 2.9 G/DL (3.4-5.0) L Prothrombin Time 12.6 SEC (9.30-11.50) H Prothromb Time International Ratio 1.2 (0.9-1.1) H Activated Partial Thromboplast Time 31 SEC (23-33) Height (Feet): 5 Height (Inches): 2.00 Weight (Pounds): 130 Medications Current Medications Medications (Trade) Dose Ordered Sig/Analia Route PRN Reason Start Time Stop Time Status Last Admin Dose Admin Acetaminophen (Tylenol) 650 mg Q4H PRN ORAL Fever 12/21/18 18:30 01/20/19 18:29 Albuterol/ Ipratropium (Albuterol/ Ipratropium) 3 ml Q4H PRN HHN Shortness of Breath 12/21/18 18:30 12/26/18 18:29 Amlodipine Besylate (Norvasc) 2.5 mg DAILY ORAL 12/23/18 09:00 01/22/19 08:59 Apixaban (Eliquis) 2.5 mg BID ORAL 12/22/18 09:00 01/21/19 08:59 12/22/18 17:41 Aspirin (Ecotrin) 81 mg DAILY ORAL 12/22/18 09:00 01/21/19 08:59 12/22/18 08:54 Chlordiazepoxide (Librium) 25 mg DAILY ORAL 12/23/18 09:00 12/30/18 08:59 Dextrose (Dextrose 50%) 25 ml Q30M PRN IV Hypoglycemia 12/21/18 18:30 01/20/19 18:29 Dextrose (Dextrose 50%) 50 ml Q30M PRN IV Hypoglycemia 12/21/18 18:30 01/20/19 18:29 Furosemide (Lasix) 40 mg EVERY 8 HOURS IV 12/21/18 22:00 01/20/19 21:59 12/22/18 14:53 Nortriptyline HCl (Pamelor) 50 mg DAILY ORAL 12/22/18 09:00 01/21/19 08:59 12/22/18 08:54 Ondansetron HCl (Zofran) 4 mg Q6H PRN IVP Nausea & Vomiting 12/21/18 18:30 01/20/19 18:29 Polyethylene Glycol (Miralax) 17 gm DAILYPRN PRN ORAL Constipation 12/21/18 18:30 01/20/19 18:29 12/22/18 05:43 Temazepam (Restoril) 15 mg HSPRN PRN ORAL Insomnia 12/21/18 18:30 12/28/18 18:29 Assessment/Plan Problem List: (1) MDD (major depressive disorder), recurrent episode, moderate ICD Codes: F33.1 - Major depressive disorder, recurrent, moderate SNOMED: 08542480, 389849977 (2) Anxiety disorder ICD Codes: F41.9 - Anxiety disorder, unspecified SNOMED: 106605203 Assessment/Plan cont nortriptyline cont ativan prn provided brent/Pari Toney MD Dec 22, 2018 20:45
--- NOTE | 2018-12-22 22:19 | NUR ---
HAND-OFF: Report given to Prabhu RN, pt. remains stable and no signs of distress noted.
[2018-12-23] VITALS: BP 115/75
--- NOTE | 2018-12-23 02:15 | History and Physical Report ---
DATE OF ADMISSION: 12/21/2018 CHIEF COMPLAINT: Shortness of breath. HISTORY OF PRESENT ILLNESS: This is an 83-year-old, very delightful female with a past medical history significant for hypertension; history of coronary artery disease, status post bypass surgery x2; and history of valve replacement, who was presented to the hospital complaining about shortness of breath as requested by the primary doctor. The patient was advised to come to the emergency room due to the worsening of shortness of breath. She denies any orthopnea or PND. Denies any palpitation. Denies any loss of consciousness. Shortly after initial evaluation in the emergency, the patient was admitted to hospital with shortness of breath, most likely secondary to the acute CHF exacerbation with pleural effusion. PAST MEDICAL HISTORY AND PAST SURGICAL HISTORY: As above. History of coronary artery disease, status post CABG x2 vessels as well as valve replacement, nonspecific; history of dyslipidemia; and diabetes type 2. Denies any history of hypertension. Denies any history of myocardial infarction. History of uterine cancer, status post radiation. Denies any stroke. History of anemia and history of atrial fibrillation with bilateral carotid stenosis 50% to 60%, bioprosthetic mitral valve replacement, systemic hypertension, peptic ulcer disease, pulmonary hypertension, and dyslipidemia. MEDICATIONS AT HOME: Please refer to medication reconciliation. ALLERGIES: No known drug allergies. SOCIAL HISTORY: Denies any smoking. She has a history of smoking in the past as well as drinks over 50 years ago. No substance abuse. She lives in assisted living. FAMILY HISTORY: Noncontributory. REVIEW OF SYSTEMS: Mostly as above. Complained about constipation. No bowel movement past 2 days. Denies any loss of consciousness. Denies any fall. Complained about shortness of breath. Complained about cellulitis of lower extremity 2 weeks ago. Denies any fever or chills. Denies any hemoptysis or hematochezia. Denies any bright red blood per rectum. PHYSICAL EXAMINATION: VITAL SIGNS: On admission from the ER, it is significant for temperature 97.9 degrees, pulse of 63, respirations 16, and blood pressure 134/80. GENERAL: The patient is awake and responsive. No acute distress. HEAD AND NECK: Pupils are reactive to light. Extraocular movements are intact. Neck was supple. No JVD. LUNGS: Decreased air in the bases. No wheezes. No rhonchi. HEART: S1 and S2. Regular rhythm. Systolic ejection murmur was noted in the aortic valve. No hives or thrills. ABDOMEN: Soft, nondistended, and nontender. Positive bowel sounds. EXTREMITIES: No cyanosis, clubbing, or edema. Hyperpigmentation and mild erythema around the ankle area. NEUROLOGIC: Cranial nerves II through XII grossly intact. Motor is 5/5 in all extremities. Gait was not assessed due to the patient's status. RECTAL: Refused and deferred. GENITOURINARY: Refused and deferred. PSYCHIATRIC: Mood and affect are intact. LABORATORY AND DIAGNOSTIC DATA: On admission, WBC of 5.3, hemoglobin of 11, hematocrit 35, and platelets are 327,000. Sodium was 136, potassium is 5.0, chloride is 102, bicarb is 24, BUN 23, creatinine 1.2, glucose is 94, and calcium is 8.8. Total bilirubin of 0.3. AST of 38, ALT of 23, and alkaline phos was 130. Total creatine kinase is 60. Troponin 0.068. ProBNP of 3720. Urinalysis unremarkable. PT 12, INR 1.2, and PTT of 29. Chest x-ray noted. The patient has large left and a possible small right pleural effusion. Equivocal minimal interstitial congestion. ASSESSMENT: 1. Severe shortness of breath, most likely secondary to acute CHF exacerbation and chronic with bilateral pleural effusion, left greater than the right. 2. History of mitral valve bioprosthetic valve replacement. 3. Aortic stenosis. 4. History of coronary artery disease, status post CABG x2 vessels. 5. Systemic hypertension. 6. Pulmonary hypertension. 7. Anxiety. 8. Carotid stenosis. 9. Mild anemia. 10. Elevated troponin, most likely secondary to demand ischemia. PLAN: Admit the patient to [facility]. We will follow up with Dr. Mike Long from Cardiology as well as Dr. Amor, Pulmonary Critical Care. The patient had anticoagulation already with the Eliquis. Code status is Full Code. DVT prophylaxis as mentioned above. Lasix IV. Nebulizer treatment as needed. We will resume home medication and we will consider the patient to stay in the hospital greater than 2 days. Moustapha Mckeon M.D. DR: SUSAN JOB#: [id number] CC:
[2018-12-23 04:00] VITALS: BP 119/69
[2018-12-23 04:56] LABS: BASOPHILS % (AUTO) 1.6 % (0.0-2.0); EOSINOPHILS % (AUTO) 2.9 % (0.0-3.0); HEMATOCRIT 34.2 % (37.0-47.0); HEMOGLOBIN 10.7 G/DL (12.0-16.0); LYMPHOCYTES % (AUTO) 6.6 % (20.0-45.0); MEAN CORPUSCULAR VOLUME 90 FL (80-99); MONOCYTES % (AUTO) 8.4 % (1.0-10.0); NEUTROPHILS % (AUTO) 80.4 % (45.0-75.0); PLATELET COUNT 244 K/UL (150-450); RED CELL DISTRIBUTION WIDTH 16.6 % (11.6-14.8); WHITE BLOOD COUNT 4.9 K/UL (4.8-10.8)
[2018-12-23 05:21] LABS: ALANINE AMINOTRANSFERASE 21 U/L (12-78); ALBUMIN 2.9 G/DL (3.4-5.0); ALBUMIN/GLOBULIN RATIO 0.7 (1.0-2.7); ALKALINE PHOSPHATASE 116 U/L (46-116); ANION GAP 4 mmol/L (5-15); ASPARTATE AMINO TRANSFERASE 26 U/L (15-37); BILIRUBIN,TOTAL 0.5 MG/DL (0.2-1.0); BLOOD UREA NITROGEN 14 mg/dL (7-18); CALCIUM 8.6 MG/DL (8.5-10.1); CARBON DIOXIDE 33 MMOL/L (21-32); CHLORIDE 102 MMOL/L (98-107); CREATININE 1.1 MG/DL (0.55-1.30); POTASSIUM 3.8 MMOL/L (3.5-5.1); SODIUM 139 MMOL/L (136-145)
--- NOTE | 2018-12-23 07:43 | NUR ---
HAND-OFF: Report given to Prabhu Bolanos RN.
[2018-12-23 08:00] VITALS: BP 108/48
--- NOTE | 2018-12-23 08:51 | Pulmonology Progress Note ---
Assessment/Plan Problems: (1) Acute respiratory failure (2) Pulmonary edema (3) Pleural effusion (4) NSTEMI (non-ST elevated myocardial infarction) (5) CAD (coronary artery disease) (6) Hx of CABG Assessment/Plan diuresed 2.2 liters so far watch bun/creatinine norvasc was decreased CXR today showed less edema but effusion has not changed yet will use positional therapy and incentive spirometry. There might be a "trapped lung" will hold off thoracentesis, continue Apixiban for now. CXR in am Subjective ROS Limited/Unobtainable: No Interval Events: on venturi mask now Allergies: Coded Allergies: No Known Allergies (Unverified , 12/21/18) Objective Last 24 Hour Vital Signs Date Time Temp Pulse Resp B/P (MAP) Pulse Ox O2 Delivery O2 Flow Rate FiO2 12/23/18 07:48 98 Venturi Mask 10.0 45 12/23/18 07:48 Venturi Mask 10.0 45 12/23/18 07:45 69 16 Venturi Mask 10.0 45 12/23/18 04:00 66 12/23/18 04:00 Non-Rebreather 15.0 12/23/18 04:00 96.9 79 20 119/69 (86) 99 12/23/18 00:00 Non-Rebreather 15.0 12/23/18 00:00 65 12/23/18 00:00 97.8 66 16 115/75 (88) 100 12/22/18 20:24 68 20 Venturi Mask 12.0 50 12/22/18 20:23 97 Venturi Mask 12.0 50 12/22/18 20:23 Venturi Mask 12.0 50 12/22/18 20:00 Non-Rebreather 15.0 12/22/18 20:00 67 12/22/18 20:00 96.8 64 18 120/56 (77) 100 12/22/18 16:00 97.7 82 15 126/77 (93) 98 12/22/18 16:00 Non-Rebreather 15.0 12/22/18 15:17 66 12/22/18 12:00 Non-Rebreather 15.0 12/22/18 12:00 97.7 70 16 125/78 (94) 99 12/22/18 11:40 73 12/22/18 08:54 78 125/82 Intake and Output 12/22/18 12/23/18 18:59 06:59 Intake Total 350 ml Output Total 1500 ml 1000 ml Balance -1150 ml -1000 ml Intake Oral 350 ml Output Urine Total 1500 ml 1000 ml # Voids 3 6 General Appearance: WD/WN HEENT: normocephalic Respiratory/Chest: chest wall non-tender, lungs clear Breasts: no masses Cardiovascular: normal peripheral pulses, regular rhythm Abdomen: soft, non tender, no organomegaly Genitourinary: normal external genitalia Extremities: no clubbing Skin: no rash Microbiology Date/Time Source Procedure Growth Status 12/21/18 18:30 Nasal Nares MRSA Culture - Final NO METHICILLIN RESISTANT STAPH AUREUS... Complete Laboratory Tests 12/22/18 10:45: Prothrombin Time 12.6H, Prothromb Time International Ratio 1.2H, Activated Partial Thromboplast Time 31 12/23/18 03:50: White Blood Count 4.9, Red Blood Count 3.80L, Hemoglobin 10.7L, Hematocrit 34.2L , Mean Corpuscular Volume 90, Mean Corpuscular Hemoglobin 28.2, Mean Corpuscular Hemoglobin Concent 31.3L, Red Cell Distribution Width 16.6H, Platelet Count 244, Mean Platelet Volume 5.5L, Neutrophils (%) (Auto) 80.4H, Lymphocytes (%) (Auto) 6.6L, Monocytes (%) (Auto) 8.4, Eosinophils (%) (Auto) 2.9, Basophils (%) (Auto) 1.6, Sodium Level 139, Potassium Level 3.8, Chloride Level 102, Carbon Dioxide Level 33H, Anion Gap 4L, Blood Urea Nitrogen 14, Creatinine 1.1, Estimat Glomerular Filtration Rate , Glucose Level 91, Calcium Level 8.6, Total Bilirubin 0.5, Aspartate Amino Transf (AST/SGOT) 26, Alanine Aminotransferase (ALT/SGPT) 21, Alkaline Phosphatase 116, Troponin I 0.052, Pro- B-Type Natriuretic Peptide 2071H, Total Protein 7.3, Albumin 2.9L, Globulin 4.4 , Albumin/Globulin Ratio 0.7L Current Medications Medications (Trade) Dose Ordered Sig/Analia Route PRN Reason Start Time Stop Time Status Last Admin Dose Admin Acetaminophen (Tylenol) 650 mg Q4H PRN ORAL Fever 12/21/18 18:30 01/20/19 18:29 Albuterol/ Ipratropium (Albuterol/ Ipratropium) 3 ml Q4H PRN HHN Shortness of Breath 12/21/18 18:30 12/26/18 18:29 Amlodipine Besylate (Norvasc) 2.5 mg DAILY ORAL 12/23/18 09:00 01/22/19 08:59 Apixaban (Eliquis) 2.5 mg BID ORAL 12/22/18 09:00 01/21/19 08:59 12/22/18 17:41 Aspirin (Ecotrin) 81 mg DAILY ORAL 12/22/18 09:00 01/21/19 08:59 12/22/18 08:54 Chlordiazepoxide (Librium) 25 mg DAILY ORAL 12/23/18 09:00 12/30/18 08:59 Dextrose (Dextrose 50%) 25 ml Q30M PRN IV Hypoglycemia 12/21/18 18:30 01/20/19 18:29 Dextrose (Dextrose 50%) 50 ml Q30M PRN IV Hypoglycemia 12/21/18 18:30 01/20/19 18:29 Furosemide (Lasix) 40 mg EVERY 8 HOURS IV 12/21/18 22:00 01/20/19 21:59 12/23/18 06:17 Nortriptyline HCl (Pamelor) 50 mg DAILY ORAL 12/22/18 09:00 01/21/19 08:59 12/22/18 08:54 Ondansetron HCl (Zofran) 4 mg Q6H PRN IVP Nausea & Vomiting 12/21/18 18:30 01/20/19 18:29 Polyethylene Glycol (Miralax) 17 gm DAILYPRN PRN ORAL Constipation 12/21/18 18:30 01/20/19 18:29 12/22/18 05:43 Temazepam (Restoril) 15 mg HSPRN PRN ORAL Insomnia 12/21/18 18:30 12/28/18 18:29 Mariya Amor MD Dec 23, 2018 08:51
[2018-12-23] MEDS ORDERED: chlordiazePOXIDE 25mg Cap ORAL SCH (09:00)
--- NOTE | 2018-12-23 09:15 | Diagnostic Imaging Report ---
EXAM: XR Chest, 1 View CLINICAL HISTORY: DYSPNEA TECHNIQUE: Frontal view of the chest. COMPARISON: Chest x-ray dated 12/22/18 FINDINGS: Lungs: No significant change in the left lung base consolidation. Persistent increased interstitial markings bilaterally. Pleural space: No significant change in the left pleural effusion. No visible pneumothorax. Heart: Unremarkable. No cardiomegaly. Mediastinum: Unremarkable. Bones/joints: Mild degenerative changes throughout the visualized spine. Status post median sternotomy. Vasculature: Atherosclerotic calcifications within the aortic arch. Tubes, lines and devices: EKG leads overlie the thorax. IMPRESSION: No significant change in the left lung base consolidation and left pleural effusion.
[2018-12-23] MEDS: Eliquis 2.5mg tablet ORAL SCH ×2 (09:24→17:37)
[2018-12-23] MEDS: Nortriptyline 25mg cap ORAL SCH (09:25)
[2018-12-23] MEDS: Aspirin EC 81mg tab ORAL SCH (09:25)
--- NOTE | 2018-12-23 09:30 | NUR ---
NURSE NOTES: Dr. Amor at nurse station, Dr. Amor cancelled US thoracentesis, states "chest x-ray looks better." Dr. Amor also discontinued body fluid lab orders at that patient is no longer have thoracentesis done. Dr. Amor also ordered to continue schedule Eliquis medication as ordered. Orders entered, noted, and carried out. Will continue to monitor patient.
[2018-12-23 12:00] VITALS: BP 132/60
--- NOTE | 2018-12-23 13:52 | Cardiology Progress Note ---
Assessment/Plan Assessment/Plan 1. Dyspnea. 2. Pleural effusion. 3. History of mitral valve replacement, bioprosthetic. 4. Aortic stenosis. 5. History of coronary artery disease. Reportedly negative stress test in March 2018, details of which are unknown. 6. Systemic hypertension. 7. Pulmonary hypertension. 8. Anxiety. 9. History of carotid stenosis 10. moderate diastolic dysfucntion echo showed normal lv function sig pulm htn mild -mod gradient across the mitral and aortic valve "responded" to diuretic will further decrease norvasc to have room for diuretics trop now lower doubt the degree of pulm htn related to left heart causes may have an additional cause duplex neg may need to consider thoracentesis if persistent effusion despite diuretic or if bp limit diuretics , chest ct? will d/w dr espinoza regarding pulm htn mckeon and meds d/w pt and dtr at bedside nto seem any better objectively but subjectively feel better Subjective Cardiovascular: Denies: chest pain, lightheadedness Respiratory: Denies: shortness of breath Gastrointestinal/Abdominal: Denies: abdominal pain Genitourinary: Denies: burning Subjective feel laot better she says Objective Last 24 Hour Vital Signs Date Time Temp Pulse Resp B/P (MAP) Pulse Ox O2 Delivery O2 Flow Rate FiO2 12/23/18 12:00 Non-Rebreather 15.0 12/23/18 12:00 97.8 81 20 132/60 (84) 97 12/23/18 08:00 97.7 80 20 108/48 (68) 98 12/23/18 08:00 Non-Rebreather 15.0 12/23/18 07:59 72 12/23/18 07:48 98 Venturi Mask 10.0 45 12/23/18 07:48 Venturi Mask 10.0 45 12/23/18 07:45 69 16 Venturi Mask 10.0 45 12/23/18 04:00 66 12/23/18 04:00 Non-Rebreather 15.0 12/23/18 04:00 96.9 79 20 119/69 (86) 99 12/23/18 00:00 Non-Rebreather 15.0 12/23/18 00:00 65 12/23/18 00:00 97.8 66 16 115/75 (88) 100 12/22/18 20:24 68 20 Venturi Mask 12.0 50 12/22/18 20:23 97 Venturi Mask 12.0 50 12/22/18 20:23 Venturi Mask 12.0 50 12/22/18 20:00 Non-Rebreather 15.0 12/22/18 20:00 67 12/22/18 20:00 96.8 64 18 120/56 (77) 100 12/22/18 16:00 97.7 82 15 126/77 (93) 98 12/22/18 16:00 Non-Rebreather 15.0 12/22/18 15:17 66 General Appearance: no apparent distress, alert Neck: supple Cardiovascular: irregularly irregular Respiratory/Chest: decreased breath sounds - left Abdomen: normal bowel sounds, non tender, soft Extremities: trace edema Intake and Output 12/22/18 12/23/18 18:59 06:59 Intake Total 350 ml Output Total 1500 ml 1000 ml Balance -1150 ml -1000 ml Intake Oral 350 ml Output Urine Total 1500 ml 1000 ml # Voids 3 6 Laboratory Tests Test 12/23/18 03:50 White Blood Count 4.9 K/UL (4.8-10.8) Red Blood Count 3.80 M/UL (4.20-5.40) L Hemoglobin 10.7 G/DL (12.0-16.0) L Hematocrit 34.2 % (37.0-47.0) L Mean Corpuscular Volume 90 FL (80-99) Mean Corpuscular Hemoglobin 28.2 PG (27.0-31.0) Mean Corpuscular Hemoglobin Concent 31.3 G/DL (32.0-36.0) L Red Cell Distribution Width 16.6 % (11.6-14.8) H Platelet Count 244 K/UL (150-450) Mean Platelet Volume 5.5 FL (6.5-10.1) L Neutrophils (%) (Auto) 80.4 % (45.0-75.0) H Lymphocytes (%) (Auto) 6.6 % (20.0-45.0) L Monocytes (%) (Auto) 8.4 % (1.0-10.0) Eosinophils (%) (Auto) 2.9 % (0.0-3.0) Basophils (%) (Auto) 1.6 % (0.0-2.0) Sodium Level 139 MMOL/L (136-145) Potassium Level 3.8 MMOL/L (3.5-5.1) Chloride Level 102 MMOL/L (98-107) Carbon Dioxide Level 33 MMOL/L (21-32) H Anion Gap 4 mmol/L (5-15) L Blood Urea Nitrogen 14 mg/dL (7-18) Creatinine 1.1 MG/DL (0.55-1.30) Estimat Glomerular Filtration Rate mL/min (>60) Glucose Level 91 MG/DL (74-106) Calcium Level 8.6 MG/DL (8.5-10.1) Total Bilirubin 0.5 MG/DL (0.2-1.0) Aspartate Amino Transf (AST/SGOT) 26 U/L (15-37) Alanine Aminotransferase (ALT/SGPT) 21 U/L (12-78) Alkaline Phosphatase 116 U/L (46-116) Troponin I 0.052 ng/mL (0.000-0.056) Pro-B-Type Natriuretic Peptide 2071 pg/mL (0-125) H Total Protein 7.3 G/DL (6.4-8.2) Albumin 2.9 G/DL (3.4-5.0) L Globulin 4.4 g/dL Albumin/Globulin Ratio 0.7 (1.0-2.7) L Microbiology Date/Time Source Procedure Growth Status 12/21/18 18:30 Nasal Nares MRSA Culture - Final NO METHICILLIN RESISTANT STAPH AUREUS... Complete 12/21/18 18:30 Rectum VRE Culture - Final NO VANCOMYCIN RESISTANT ENTEROCOCCUS ... Complete 12/21/18 18:30 Rectum - Final NO CARBAPENEM-RESISTANT ENTEROBACTERI... Complete Mike Long MD Dec 23, 2018 13:52
[2018-12-23 16:00] VITALS: BP 138/67
[2018-12-23] MEDS: Miralax 17gm pkt ORAL PRN (17:37)
--- NOTE | 2018-12-23 18:55 | Internal Med Progress Note ---
Subjective Date of Service: Dec 23, 2018 Physician Name Arturo Vogt Attending Physician Moustapha Mckeon MD Current Medications Medications (Trade) Dose Ordered Sig/Analia Route PRN Reason Start Time Stop Time Status Last Admin Dose Admin Acetaminophen (Tylenol) 650 mg Q4H PRN ORAL Fever 12/21/18 18:30 01/20/19 18:29 Albuterol/ Ipratropium (Albuterol/ Ipratropium) 3 ml Q4H PRN HHN Shortness of Breath 12/21/18 18:30 12/26/18 18:29 Amlodipine Besylate (Norvasc) 2.5 mg DAILY ORAL 12/23/18 09:00 01/22/19 08:59 Apixaban (Eliquis) 2.5 mg BID ORAL 12/22/18 09:00 01/21/19 08:59 12/23/18 17:37 Aspirin (Ecotrin) 81 mg DAILY ORAL 12/22/18 09:00 01/21/19 08:59 12/23/18 09:25 Chlordiazepoxide (Librium) 25 mg DAILY ORAL 12/23/18 09:00 12/30/18 08:59 12/23/18 09:25 Dextrose (Dextrose 50%) 25 ml Q30M PRN IV Hypoglycemia 12/21/18 18:30 01/20/19 18:29 Dextrose (Dextrose 50%) 50 ml Q30M PRN IV Hypoglycemia 12/21/18 18:30 01/20/19 18:29 Furosemide (Lasix) 40 mg EVERY 8 HOURS IV 12/21/18 22:00 01/20/19 21:59 12/23/18 13:10 Nortriptyline HCl (Pamelor) 50 mg DAILY ORAL 12/22/18 09:00 01/21/19 08:59 12/23/18 09:25 Ondansetron HCl (Zofran) 4 mg Q6H PRN IVP Nausea & Vomiting 12/21/18 18:30 01/20/19 18:29 Polyethylene Glycol (Miralax) 17 gm DAILYPRN PRN ORAL Constipation 12/21/18 18:30 01/20/19 18:29 12/23/18 17:37 Temazepam (Restoril) 15 mg HSPRN PRN ORAL Insomnia 12/21/18 18:30 12/28/18 18:29 Allergies: Coded Allergies: No Known Allergies (Unverified , 12/21/18) ROS Limited/Unobtainable: No Constitutional: Reports: no symptoms HEENT: Reports: no symptoms Cardiovascular: Reports: no symptoms Respiratory: Reports: shortness of breath Gastrointestinal/Abdominal: Reports: no symptoms Neurologic/Psychiatric: Reports: no symptoms Subjective 83 YO F admitted with shortness of breath. Now CHF. Cover for Int Chace-Dr Mckeon. [facility]. Continues on non rebreather Objective Last Vital Signs Date Time Temp Pulse Resp B/P (MAP) Pulse Ox O2 Delivery O2 Flow Rate FiO2 12/23/18 16:00 98.1 80 15 138/67 (90) 97 12/23/18 16:00 Non-Rebreather 15.0 12/23/18 07:48 45 Laboratory Tests Test 12/23/18 03:50 White Blood Count 4.9 K/UL (4.8-10.8) Red Blood Count 3.80 M/UL (4.20-5.40) L Hemoglobin 10.7 G/DL (12.0-16.0) L Hematocrit 34.2 % (37.0-47.0) L Mean Corpuscular Volume 90 FL (80-99) Mean Corpuscular Hemoglobin 28.2 PG (27.0-31.0) Mean Corpuscular Hemoglobin Concent 31.3 G/DL (32.0-36.0) L Red Cell Distribution Width 16.6 % (11.6-14.8) H Platelet Count 244 K/UL (150-450) Mean Platelet Volume 5.5 FL (6.5-10.1) L Neutrophils (%) (Auto) 80.4 % (45.0-75.0) H Lymphocytes (%) (Auto) 6.6 % (20.0-45.0) L Monocytes (%) (Auto) 8.4 % (1.0-10.0) Eosinophils (%) (Auto) 2.9 % (0.0-3.0) Basophils (%) (Auto) 1.6 % (0.0-2.0) Sodium Level 139 MMOL/L (136-145) Potassium Level 3.8 MMOL/L (3.5-5.1) Chloride Level 102 MMOL/L (98-107) Carbon Dioxide Level 33 MMOL/L (21-32) H Anion Gap 4 mmol/L (5-15) L Blood Urea Nitrogen 14 mg/dL (7-18) Creatinine 1.1 MG/DL (0.55-1.30) Estimat Glomerular Filtration Rate mL/min (>60) Glucose Level 91 MG/DL (74-106) Calcium Level 8.6 MG/DL (8.5-10.1) Total Bilirubin 0.5 MG/DL (0.2-1.0) Aspartate Amino Transf (AST/SGOT) 26 U/L (15-37) Alanine Aminotransferase (ALT/SGPT) 21 U/L (12-78) Alkaline Phosphatase 116 U/L (46-116) Troponin I 0.052 ng/mL (0.000-0.056) Pro-B-Type Natriuretic Peptide 2071 pg/mL (0-125) H Total Protein 7.3 G/DL (6.4-8.2) Albumin 2.9 G/DL (3.4-5.0) L Globulin 4.4 g/dL Albumin/Globulin Ratio 0.7 (1.0-2.7) L Microbiology Date/Time Source Procedure Growth Status 12/21/18 18:30 Nasal Nares MRSA Culture - Final NO METHICILLIN RESISTANT STAPH AUREUS... Complete 12/21/18 18:30 Rectum VRE Culture - Final NO VANCOMYCIN RESISTANT ENTEROCOCCUS ... Complete 12/21/18 18:30 Rectum - Final NO CARBAPENEM-RESISTANT ENTEROBACTERI... Complete Intake and Output 12/22/18 12/23/18 19:00 07:00 Intake Total 350 ml Output Total 1500 ml 1000 ml Balance -1150 ml -1000 ml Intake Oral 350 ml Output Urine Total 1500 ml 1000 ml # Voids 3 6 Objective PHYSICAL EXAMINATION: GENERAL: The patient is awake and responsive. No acute distress. HEAD AND NECK: Pupils are reactive to light. Extraocular movements are intact. Neck was supple. No JVD. LUNGS: Decreased air in the bases. No wheezes. No rhonchi. HEART: S1 and S2. Regular rhythm. Systolic ejection murmur was noted in the aortic valve. No hives or thrills. ABDOMEN: Soft, nondistended, and nontender. Positive bowel sounds. EXTREMITIES: No cyanosis, clubbing, or edema. Hyperpigmentation and mild erythema around the ankle area. NEUROLOGIC: Cranial nerves II through XII grossly intact. Motor is 5/5 in all extremities. Gait was not assessed due to the patient's status. RECTAL: Refused and deferred. GENITOURINARY: Refused and deferred. PSYCHIATRIC: Mood and affect are intact. Assessment/Plan Assessment/Plan ASSESSMENT: 1. Severe shortness of breath, most likely secondary to acute CHF exacerbation and chronic with bilateral pleural effusion, left greater than the right. 2. History of mitral valve bioprosthetic valve replacement. 3. Aortic stenosis. 4. History of coronary artery disease, status post CABG x2 vessels. 5. Systemic hypertension. 6. Pulmonary hypertension. 7. Anxiety. 8. Carotid stenosis. 9. Mild anemia. 10. Elevated troponin, most likely secondary to demand ischemia. PLAN: Admit the patient to [facility]. We will follow up with Dr. Mike Long from Cardiology as well as Dr. Amor, Pulmonary Critical Care. The patient had anticoagulation already with the Eliquis. Code status is Full Code. DVT prophylaxis as mentioned above. Lasix IV. Nebulizer treatment as needed. We will resume home medication and we will consider the patient to stay in the hospital greater than 2 days. Arturo Vogt MD Dec 23, 2018 18:55
--- NOTE | 2018-12-23 19:28 | NUR ---
HAND-OFF: Report given to SUMI Hackett.
[2018-12-23 20:00] VITALS: BP 120/59
--- NOTE | 2018-12-23 20:19 | NUR ---
NURSE NOTES: Received report from Prabhu Colin RN. Pt in bed awake on venturi mask 15L with O2 sat of 95%. Pt denies pain. Pt's needs met. IV site intact and saline locked. Bed in lowest position with side rails up x2 and call light in reach. Will continue to monitor.
--- NOTE | 2018-12-23 22:03 | General Progress Note ---
Assessment/Plan Assessment/Plan cont nortriptyline cont ativan prn provided ro/st Subjective Neurologic/Psychiatric: Reports: anxiety, depressed, emotional problems Allergies: Coded Allergies: No Known Allergies (Unverified , 12/21/18) Objective Last 24 Hour Vital Signs Date Time Temp Pulse Resp B/P (MAP) Pulse Ox O2 Delivery O2 Flow Rate FiO2 12/23/18 20:00 98.6 74 18 120/59 (79) 94 12/23/18 19:29 Venturi Mask 10.0 45 12/23/18 19:28 97 Venturi Mask 10.0 45 12/23/18 19:15 71 16 Venturi Mask 10.0 45 12/23/18 16:00 98.1 80 15 138/67 (90) 97 12/23/18 16:00 Non-Rebreather 15.0 12/23/18 15:47 69 12/23/18 12:00 Non-Rebreather 15.0 12/23/18 12:00 97.8 81 20 132/60 (84) 97 12/23/18 11:54 72 12/23/18 08:00 97.7 80 20 108/48 (68) 98 12/23/18 08:00 Non-Rebreather 15.0 12/23/18 07:59 72 12/23/18 07:48 98 Venturi Mask 10.0 45 12/23/18 07:48 Venturi Mask 10.0 45 12/23/18 07:45 69 16 Venturi Mask 10.0 45 12/23/18 04:00 66 12/23/18 04:00 Non-Rebreather 15.0 12/23/18 04:00 96.9 79 20 119/69 (86) 99 12/23/18 00:00 Non-Rebreather 15.0 12/23/18 00:00 65 12/23/18 00:00 97.8 66 16 115/75 (88) 100 Intake and Output 12/22/18 12/23/18 19:00 07:00 Intake Total 350 ml Output Total 1500 ml 1000 ml Balance -1150 ml -1000 ml Intake Oral 350 ml Output Urine Total 1500 ml 1000 ml # Voids 3 6 Laboratory Tests 12/23/18 03:50: White Blood Count 4.9, Red Blood Count 3.80L, Hemoglobin 10.7L, Hematocrit 34.2L , Mean Corpuscular Volume 90, Mean Corpuscular Hemoglobin 28.2, Mean Corpuscular Hemoglobin Concent 31.3L, Red Cell Distribution Width 16.6H, Platelet Count 244, Mean Platelet Volume 5.5L, Neutrophils (%) (Auto) 80.4H, Lymphocytes (%) (Auto) 6.6L, Monocytes (%) (Auto) 8.4, Eosinophils (%) (Auto) 2.9, Basophils (%) (Auto) 1.6, Sodium Level 139, Potassium Level 3.8, Chloride Level 102, Carbon Dioxide Level 33H, Anion Gap 4L, Blood Urea Nitrogen 14, Creatinine 1.1, Estimat Glomerular Filtration Rate , Glucose Level 91, Calcium Level 8.6, Total Bilirubin 0.5, Aspartate Amino Transf (AST/SGOT) 26, Alanine Aminotransferase (ALT/SGPT) 21, Alkaline Phosphatase 116, Troponin I 0.052, Pro- B-Type Natriuretic Peptide 2071H, Total Protein 7.3, Albumin 2.9L, Globulin 4.4 , Albumin/Globulin Ratio 0.7L Height (Feet): 5 Height (Inches): 2.00 Weight (Pounds): 129 Pari Prasad MD Dec 23, 2018 22:03
[2018-12-24] VITALS: BP 122/61
[2018-12-24 04:00] VITALS: BP 134/65
[2018-12-24 04:07] LABS: BASOPHILS % (AUTO) 1.2 % (0.0-2.0); EOSINOPHILS % (AUTO) 3.2 % (0.0-3.0); HEMATOCRIT 36.6 % (37.0-47.0); HEMOGLOBIN 11.5 G/DL (12.0-16.0); MEAN CORPUSCULAR VOLUME 88 FL (80-99); MONOCYTES % (AUTO) 8.2 % (1.0-10.0); NEUTROPHILS % (AUTO) 79.4 % (45.0-75.0); PLATELET COUNT 240 K/UL (150-450); RED BLOOD COUNT 4.14 M/UL (4.20-5.40); RED CELL DISTRIBUTION WIDTH 16.1 % (11.6-14.8); WHITE BLOOD COUNT 3.9 K/UL (4.8-10.8)
[2018-12-24 04:30] LABS: ALANINE AMINOTRANSFERASE 17 U/L (12-78); ALBUMIN 2.7 G/DL (3.4-5.0); ALBUMIN/GLOBULIN RATIO 0.6 (1.0-2.7); ALKALINE PHOSPHATASE 108 U/L (46-116); ANION GAP 3 mmol/L (5-15); ASPARTATE AMINO TRANSFERASE 26 U/L (15-37); BILIRUBIN,TOTAL 0.3 MG/DL (0.2-1.0); BLOOD UREA NITROGEN 16 mg/dL (7-18); CALCIUM 8.4 MG/DL (8.5-10.1); CARBON DIOXIDE 36 MMOL/L (21-32); CHLORIDE 102 MMOL/L (98-107); CREATININE 1.3 MG/DL (0.55-1.30); POTASSIUM 3.7 MMOL/L (3.5-5.1); SODIUM 141 MMOL/L (136-145)
[2018-12-24 08:00] VITALS: BP 120/65
--- NOTE | 2018-12-24 08:14 | NUR ---
HAND-OFF: Report and pt given to Dina Calix RN. During bedside report, RT checked pt's O2 sat on room air and it was 88% so placed pt on 3L NC. Pt stable. Pt's belongings list reviewed and signed and tele monitor on pt.
[2018-12-24] MEDS ORDERED: Albuterol/Ipratropium 3ml neb HHN PRN (08:18)
--- NOTE | 2018-12-24 08:30 | NUR ---
NURSE NOTES: Report was received on this pt's transfer to Tele unit from [facility] at 0800. Pt is awake, alert, oriented x4, was transferred via hospital bed. Belonging's list checked and signed with the transferring nurse in front of the pt. Tele monitor on pt, displays controlled AFib with heart rate in the 80's. Pt denies any pain or discomfort. Per report, pt refused Venturi mask at [facility]ATH[facility], requesting to be on room air, however while on room air, sP02 desaturated to 88%. RT at bedside, pt was placed back on oxygen via nasal cannula, currently at 98%. Skin is intact. IV access is on right AC #20G, saline lock, patent/intact. Pt reports using a walker at home, and has a bedside commode set up currently, however pt refused to use bedside commode this morning, and ambulated to the restroom for BM. Currently, pt is in high sandhu's, using her incentive spirometer. Call light is placed within easy reach, bed in lowest position, two side rails up, brakes engaged. Addendum: 12/24/18 at 1901 by JODIE HINKLE RN Observed pt ambulate to/from restroom x4 today; ambulates with steady gait, refuses to be assisted, states "please don't touch me, I can walk".
[2018-12-24] MEDS: Aspirin EC 81mg tab ORAL SCH (08:59)
[2018-12-24] MEDS: Nortriptyline 25mg cap ORAL SCH (08:59)
[2018-12-24] MEDS: Miralax 17gm pkt ORAL PRN (08:59)
[2018-12-24] MEDS: Eliquis 2.5mg tablet ORAL SCH ×2 (09:00→17:54)
[2018-12-24] MEDS: chlordiazePOXIDE 25mg Cap ORAL SCH (09:00)
--- NOTE | 2018-12-24 11:32 | Diagnostic Imaging Report ---
EXAM: XR Chest, 1 View CLINICAL HISTORY: DYSPNEA TECHNIQUE: Frontal view of the chest. COMPARISON: Chest x-rays dated 12/23/18 and 12/22/18 FINDINGS: Lungs: Stable subsegmental consolidation in the left lung base. Mildly increased interstitial markings. Pleural space: Small left pleural effusion, stable to mildly decreased compared to the prior exam. Heart: Unremarkable. No cardiomegaly. Mediastinum: Unremarkable. Bones/joints: Degenerative changes throughout the visualized spine and shoulder joints. Status post venous sternotomy. Vasculature: Atherosclerotic calcifications within the aortic arch. Tubes, lines and devices: Telemetry leads overlie the thorax. IMPRESSION: 1. Small left pleural effusion, stable to mildly decreased compared to the prior exam. 2. Subsegmental atelectasis versus infiltrate in left lung base, unchanged. 3. Mildly increased interstitial markings, stable. This is nonspecific but may suggest mild pulmonary vascular congestion or a mild interstitial pneumonitis.
[2018-12-24 12:00] VITALS: BP 117/59
--- NOTE | 2018-12-24 12:45 | Pulmonology Progress Note ---
Assessment/Plan Problems: (1) Acute respiratory failure (2) Pulmonary edema (3) Pleural effusion (4) NSTEMI (non-ST elevated myocardial infarction) (5) CAD (coronary artery disease) (6) Hx of CABG Assessment/Plan diuresed 3.9 liters so far watch bun/creatinine, stable norvasc was decreased CXR today showed less edema but effusion has decreased will use positional therapy and incentive spirometry. There might be a "trapped lung" will hold off thoracentesis, continue Apixiban for now. CXR in am Subjective ROS Limited/Unobtainable: No Constitutional: Reports: no symptoms HEENT: Repors: no symptoms Allergies: Coded Allergies: No Known Allergies (Unverified , 12/21/18) Objective Last 24 Hour Vital Signs Date Time Temp Pulse Resp B/P (MAP) Pulse Ox O2 Delivery O2 Flow Rate FiO2 12/24/18 12:00 97.7 73 18 117/59 (78) 97 12/24/18 12:00 Venturi Mask 15.0 12/24/18 09:00 77 120/65 12/24/18 08:00 97.0 77 18 120/65 (83) 99 12/24/18 08:00 Venturi Mask 15.0 12/24/18 08:00 78 12/24/18 07:53 97 Nasal Cannula 2.0 28 12/24/18 07:53 70 18 Nasal Cannula 2.0 28 12/24/18 07:53 Nasal Cannula 2.0 28 12/24/18 04:00 71 12/24/18 04:00 Venturi Mask 15.0 12/24/18 04:00 98.0 77 15 134/65 (88) 95 12/24/18 00:00 Venturi Mask 15.0 12/24/18 00:00 80 12/24/18 00:00 97.9 72 11 122/61 (81) 97 12/23/18 20:00 Venturi Mask 15.0 12/23/18 20:00 77 12/23/18 20:00 98.6 74 18 120/59 (79) 94 12/23/18 19:29 Venturi Mask 10.0 45 12/23/18 19:28 97 Venturi Mask 10.0 45 12/23/18 19:15 71 16 Venturi Mask 10.0 45 12/23/18 16:00 98.1 80 15 138/67 (90) 97 12/23/18 16:00 Non-Rebreather 15.0 12/23/18 15:47 69 Intake and Output 12/23/18 12/24/18 19:00 07:00 Output Total 1000 ml 800 ml Balance -1000 ml -800 ml Output Urine Total 1000 ml 800 ml # Voids 2 3 Objective General Appearance: WD/WN Lines, tubes and drains: peripheral HEENT: normocephalic, atraumatic Neck: non-tender, normal alignment Respiratory/Chest: chest wall non-tender, lLLL rhonchi Breasts: no masses Cardiovascular/Chest: normal peripheral pulses, normal rate Abdomen: normal bowel sounds Genitourinary/Rectal: normal genital exam Extremities: normal range of motion 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 Complete 12/21/18 18:30 Rectum VRE Culture - Final NO VANCOMYCIN RESISTANT ENTEROCOCCUS ... Complete 12/21/18 18:30 Rectum - Final NO CARBAPENEM-RESISTANT ENTEROBACTERI... Complete Laboratory Tests 12/24/18 03:21: White Blood Count 3.9L, Red Blood Count 4.14L, Hemoglobin 11.5L, Hematocrit 36.6L, Mean Corpuscular Volume 88, Mean Corpuscular Hemoglobin 27.7, Mean Corpuscular Hemoglobin Concent 31.3L, Red Cell Distribution Width 16.1H, Platelet Count 240, Mean Platelet Volume 5.4L, Neutrophils (%) (Auto) 79.4H, Lymphocytes (%) (Auto) 8.0L, Monocytes (%) (Auto) 8.2, Eosinophils (%) (Auto) 3.2H, Basophils (%) (Auto) 1.2, Sodium Level 141, Potassium Level 3.7, Chloride Level 102, Carbon Dioxide Level 36H, Anion Gap 3L, Blood Urea Nitrogen 16, Creatinine 1.3, Estimat Glomerular Filtration Rate , Glucose Level 98, Calcium Level 8.4L, Total Bilirubin 0.3, Aspartate Amino Transf (AST/SGOT) 26, Alanine Aminotransferase (ALT/SGPT) 17, Alkaline Phosphatase 108, Pro-B-Type Natriuretic Peptide 1587H, Total Protein 7.3, Albumin 2.7L, Globulin 4.6, Albumin/Globulin Ratio 0.6L Current Medications Medications (Trade) Dose Ordered Sig/Analia Route PRN Reason Start Time Stop Time Status Last Admin Dose Admin Acetaminophen (Tylenol) 650 mg Q4H PRN ORAL Fever 12/24/18 08:18 01/20/19 08:17 Albuterol/ Ipratropium (Albuterol/ Ipratropium) 3 ml Q4H PRN HHN Shortness of Breath 12/24/18 08:18 12/26/18 08:17 Amlodipine Besylate (Norvasc) 2.5 mg DAILY ORAL 12/24/18 09:00 01/22/19 08:59 12/24/18 09:00 Apixaban (Eliquis) 2.5 mg BID ORAL 12/24/18 09:00 01/21/19 08:59 12/24/18 09:00 Aspirin (Ecotrin) 81 mg DAILY ORAL 12/24/18 09:00 01/21/19 08:59 12/24/18 08:59 Chlordiazepoxide (Librium) 25 mg DAILY ORAL 12/24/18 09:00 12/30/18 08:59 12/24/18 09:00 Dextrose (Dextrose 50%) 25 ml Q30M PRN IV Hypoglycemia 12/24/18 08:18 01/20/19 08:17 Dextrose (Dextrose 50%) 50 ml Q30M PRN IV Hypoglycemia 12/24/18 08:18 01/20/19 08:17 Furosemide (Lasix) 40 mg EVERY 8 HOURS IV 12/24/18 14:00 01/20/19 21:59 Nortriptyline HCl (Pamelor) 50 mg DAILY ORAL 12/24/18 09:00 01/21/19 08:59 12/24/18 08:59 Ondansetron HCl (Zofran) 4 mg Q6H PRN IVP Nausea & Vomiting 12/24/18 08:18 01/20/19 08:17 Polyethylene Glycol (Miralax) 17 gm DAILYPRN PRN ORAL Constipation 12/24/18 08:19 01/20/19 08:18 12/24/18 08:59 Temazepam (Restoril) 15 mg HSPRN PRN ORAL Insomnia 12/24/18 21:00 12/28/18 20:59 Mariya Amor MD Dec 24, 2018 12:45
--- NOTE | 2018-12-24 13:58 | Cardiology Progress Note ---
Assessment/Plan Assessment/Plan 1. Dyspnea. 2. Pleural effusion. 3. History of mitral valve replacement, bioprosthetic. 4. Aortic stenosis. 5. History of coronary artery disease. Reportedly negative stress test in March 2018, details of which are unknown. 6. Systemic hypertension. 7. Pulmonary hypertension. 8. Anxiety. 9. History of carotid stenosis 10. moderate diastolic dysfucntion / failure echo showed normal lv function sig pulm htn mild -mod gradient across the mitral and aortic valve responded to diuretic bp is ok on lwoer dose of norvasc trop now lower doubt the degree of pulm htn related to left heart causes may have an additional cause duplex neg not ed dr dr espinoza input d/w pt at bedside cxr better sat are better now on nc Subjective Cardiovascular: Denies: chest pain, lightheadedness Respiratory: Denies: shortness of breath Gastrointestinal/Abdominal: Denies: abdominal pain Genitourinary: Denies: burning Subjective feel alot better she says tthn even yest Objective Last 24 Hour Vital Signs Date Time Temp Pulse Resp B/P (MAP) Pulse Ox O2 Delivery O2 Flow Rate FiO2 12/24/18 12:00 97.7 73 18 117/59 (78) 97 12/24/18 12:00 Venturi Mask 15.0 12/24/18 09:00 77 120/65 12/24/18 08:00 97.0 77 18 120/65 (83) 99 12/24/18 08:00 Venturi Mask 15.0 12/24/18 08:00 78 12/24/18 07:53 97 Nasal Cannula 2.0 28 12/24/18 07:53 70 18 Nasal Cannula 2.0 28 12/24/18 07:53 Nasal Cannula 2.0 28 12/24/18 04:00 71 12/24/18 04:00 Venturi Mask 15.0 12/24/18 04:00 98.0 77 15 134/65 (88) 95 12/24/18 00:00 Venturi Mask 15.0 12/24/18 00:00 80 12/24/18 00:00 97.9 72 11 122/61 (81) 97 12/23/18 20:00 Venturi Mask 15.0 12/23/18 20:00 77 12/23/18 20:00 98.6 74 18 120/59 (79) 94 12/23/18 19:29 Venturi Mask 10.0 45 12/23/18 19:28 97 Venturi Mask 10.0 45 12/23/18 19:15 71 16 Venturi Mask 10.0 45 12/23/18 16:00 98.1 80 15 138/67 (90) 97 12/23/18 16:00 Non-Rebreather 15.0 12/23/18 15:47 69 General Appearance: no apparent distress, alert Cardiovascular: normal rate, regular rhythm Respiratory/Chest: lungs clear Abdomen: normal bowel sounds, non tender, soft Extremities: no swelling Intake and Output 12/23/18 12/24/18 19:00 07:00 Output Total 1000 ml 800 ml Balance -1000 ml -800 ml Output Urine Total 1000 ml 800 ml # Voids 2 3 Laboratory Tests Test 12/24/18 03:21 White Blood Count 3.9 K/UL (4.8-10.8) L Red Blood Count 4.14 M/UL (4.20-5.40) L Hemoglobin 11.5 G/DL (12.0-16.0) L Hematocrit 36.6 % (37.0-47.0) L Mean Corpuscular Volume 88 FL (80-99) Mean Corpuscular Hemoglobin 27.7 PG (27.0-31.0) Mean Corpuscular Hemoglobin Concent 31.3 G/DL (32.0-36.0) L Red Cell Distribution Width 16.1 % (11.6-14.8) H Platelet Count 240 K/UL (150-450) Mean Platelet Volume 5.4 FL (6.5-10.1) L Neutrophils (%) (Auto) 79.4 % (45.0-75.0) H Lymphocytes (%) (Auto) 8.0 % (20.0-45.0) L Monocytes (%) (Auto) 8.2 % (1.0-10.0) Eosinophils (%) (Auto) 3.2 % (0.0-3.0) H Basophils (%) (Auto) 1.2 % (0.0-2.0) Sodium Level 141 MMOL/L (136-145) Potassium Level 3.7 MMOL/L (3.5-5.1) Chloride Level 102 MMOL/L (98-107) Carbon Dioxide Level 36 MMOL/L (21-32) H Anion Gap 3 mmol/L (5-15) L Blood Urea Nitrogen 16 mg/dL (7-18) Creatinine 1.3 MG/DL (0.55-1.30) Estimat Glomerular Filtration Rate mL/min (>60) Glucose Level 98 MG/DL (74-106) Calcium Level 8.4 MG/DL (8.5-10.1) L Total Bilirubin 0.3 MG/DL (0.2-1.0) Aspartate Amino Transf (AST/SGOT) 26 U/L (15-37) Alanine Aminotransferase (ALT/SGPT) 17 U/L (12-78) Alkaline Phosphatase 108 U/L (46-116) Pro-B-Type Natriuretic Peptide 1587 pg/mL (0-125) H Total Protein 7.3 G/DL (6.4-8.2) Albumin 2.7 G/DL (3.4-5.0) L Globulin 4.6 g/dL Albumin/Globulin Ratio 0.6 (1.0-2.7) L Microbiology Date/Time Source Procedure Growth Status 12/21/18 18:30 Nasal Nares MRSA Culture - Final NO METHICILLIN RESISTANT STAPH AUREUS... Complete 12/21/18 18:30 Rectum VRE Culture - Final NO VANCOMYCIN RESISTANT ENTEROCOCCUS ... Complete 12/21/18 18:30 Rectum - Final NO CARBAPENEM-RESISTANT ENTEROBACTERI... Complete Mike Long MD Dec 24, 2018 13:58
[2018-12-24 16:00] VITALS: BP 134/65
--- NOTE | 2018-12-24 17:20 | Internal Med Progress Note ---
Subjective Date of Service: Dec 24, 2018 Physician Name Arturo Vogt Attending Physician Moustapha Mckeon MD Current Medications Medications (Trade) Dose Ordered Sig/Analia Route PRN Reason Start Time Stop Time Status Last Admin Dose Admin Acetaminophen (Tylenol) 650 mg Q4H PRN ORAL Fever 12/24/18 08:18 01/20/19 08:17 Albuterol/ Ipratropium (Albuterol/ Ipratropium) 3 ml Q4H PRN HHN Shortness of Breath 12/24/18 08:18 12/26/18 08:17 Amlodipine Besylate (Norvasc) 2.5 mg DAILY ORAL 12/24/18 09:00 01/22/19 08:59 12/24/18 09:00 Apixaban (Eliquis) 2.5 mg BID ORAL 12/24/18 09:00 01/21/19 08:59 12/24/18 09:00 Aspirin (Ecotrin) 81 mg DAILY ORAL 12/24/18 09:00 01/21/19 08:59 12/24/18 08:59 Chlordiazepoxide (Librium) 25 mg DAILY ORAL 12/24/18 09:00 12/30/18 08:59 12/24/18 09:00 Dextrose (Dextrose 50%) 25 ml Q30M PRN IV Hypoglycemia 12/24/18 08:18 01/20/19 08:17 Dextrose (Dextrose 50%) 50 ml Q30M PRN IV Hypoglycemia 12/24/18 08:18 01/20/19 08:17 Furosemide (Lasix) 40 mg EVERY 8 HOURS IV 12/24/18 14:00 01/20/19 21:59 12/24/18 14:14 Nortriptyline HCl (Pamelor) 50 mg DAILY ORAL 12/24/18 09:00 01/21/19 08:59 12/24/18 08:59 Ondansetron HCl (Zofran) 4 mg Q6H PRN IVP Nausea & Vomiting 12/24/18 08:18 01/20/19 08:17 Polyethylene Glycol (Miralax) 17 gm DAILYPRN PRN ORAL Constipation 12/24/18 08:19 01/20/19 08:18 12/24/18 08:59 Temazepam (Restoril) 15 mg HSPRN PRN ORAL Insomnia 12/24/18 21:00 12/28/18 20:59 Allergies: Coded Allergies: No Known Allergies (Unverified , 12/21/18) ROS Limited/Unobtainable: No Constitutional: Reports: no symptoms HEENT: Reports: no symptoms Cardiovascular: Reports: no symptoms Respiratory: Reports: no symptoms Gastrointestinal/Abdominal: Reports: no symptoms Genitourinary: Reports: no symptoms Subjective 83 YO F admitted with shortness of breath. Now CHF. Cover for Int Chace-Dr Mckeon. Tolerating nasal canula Objective Last Vital Signs Date Time Temp Pulse Resp B/P (MAP) Pulse Ox O2 Delivery O2 Flow Rate FiO2 12/24/18 17:05 71 12/24/18 16:00 Venturi Mask 15.0 12/24/18 16:00 97.7 18 134/65 (88) 95 12/24/18 07:53 28 Laboratory Tests Test 12/24/18 03:21 White Blood Count 3.9 K/UL (4.8-10.8) L Red Blood Count 4.14 M/UL (4.20-5.40) L Hemoglobin 11.5 G/DL (12.0-16.0) L Hematocrit 36.6 % (37.0-47.0) L Mean Corpuscular Volume 88 FL (80-99) Mean Corpuscular Hemoglobin 27.7 PG (27.0-31.0) Mean Corpuscular Hemoglobin Concent 31.3 G/DL (32.0-36.0) L Red Cell Distribution Width 16.1 % (11.6-14.8) H Platelet Count 240 K/UL (150-450) Mean Platelet Volume 5.4 FL (6.5-10.1) L Neutrophils (%) (Auto) 79.4 % (45.0-75.0) H Lymphocytes (%) (Auto) 8.0 % (20.0-45.0) L Monocytes (%) (Auto) 8.2 % (1.0-10.0) Eosinophils (%) (Auto) 3.2 % (0.0-3.0) H Basophils (%) (Auto) 1.2 % (0.0-2.0) Sodium Level 141 MMOL/L (136-145) Potassium Level 3.7 MMOL/L (3.5-5.1) Chloride Level 102 MMOL/L (98-107) Carbon Dioxide Level 36 MMOL/L (21-32) H Anion Gap 3 mmol/L (5-15) L Blood Urea Nitrogen 16 mg/dL (7-18) Creatinine 1.3 MG/DL (0.55-1.30) Estimat Glomerular Filtration Rate mL/min (>60) Glucose Level 98 MG/DL (74-106) Calcium Level 8.4 MG/DL (8.5-10.1) L Total Bilirubin 0.3 MG/DL (0.2-1.0) Aspartate Amino Transf (AST/SGOT) 26 U/L (15-37) Alanine Aminotransferase (ALT/SGPT) 17 U/L (12-78) Alkaline Phosphatase 108 U/L (46-116) Pro-B-Type Natriuretic Peptide 1587 pg/mL (0-125) H Total Protein 7.3 G/DL (6.4-8.2) Albumin 2.7 G/DL (3.4-5.0) L Globulin 4.6 g/dL Albumin/Globulin Ratio 0.6 (1.0-2.7) L Microbiology Date/Time Source Procedure Growth Status 12/21/18 18:30 Nasal Nares MRSA Culture - Final NO METHICILLIN RESISTANT STAPH AUREUS... Complete 12/21/18 18:30 Rectum VRE Culture - Final NO VANCOMYCIN RESISTANT ENTEROCOCCUS ... Complete 12/21/18 18:30 Rectum - Final NO CARBAPENEM-RESISTANT ENTEROBACTERI... Complete Intake and Output 12/23/18 12/24/18 18:59 06:59 Output Total 1000 ml 800 ml Balance -1000 ml -800 ml Output Urine Total 1000 ml 800 ml # Voids 2 3 Objective PHYSICAL EXAMINATION: GENERAL: The patient is awake and responsive. No acute distress. HEAD AND NECK: Pupils are reactive to light. Extraocular movements are intact. Neck was supple. No JVD. LUNGS: Decreased air in the bases. No wheezes. No rhonchi. HEART: S1 and S2. Regular rhythm. Systolic ejection murmur was noted in the aortic valve. No hives or thrills. ABDOMEN: Soft, nondistended, and nontender. Positive bowel sounds. EXTREMITIES: No cyanosis, clubbing, or edema. Hyperpigmentation and mild erythema around the ankle area. NEUROLOGIC: Cranial nerves II through XII grossly intact. Motor is 5/5 in all extremities. Gait was not assessed due to the patient's status. RECTAL: Refused and deferred. GENITOURINARY: Refused and deferred. PSYCHIATRIC: Mood and affect are intact. Assessment/Plan Status: progressing Assessment/Plan ASSESSMENT: 1. Severe shortness of breath, most likely secondary to acute CHF exacerbation and chronic with bilateral pleural effusion, left greater than the right. 2. History of mitral valve bioprosthetic valve replacement. 3. Aortic stenosis. 4. History of coronary artery disease, status post CABG x2 vessels. 5. Systemic hypertension. 6. Pulmonary hypertension. 7. Anxiety. 8. Carotid stenosis. 9. Mild anemia. 10. Elevated troponin, most likely secondary to demand ischemia. PLAN: Med/surg Dr. Mike Long from Cardiology-see note Dr. Amor, Pulmonary Critical Care-see note anticoagulation DVT prophylaxis with Eliquis Code status is Full Code. Lasix IV. Nebulizer treatment as needed. We will resume home medication and we will consider the patient to stay in the hospital greater than 2 days. Arturo Vogt MD Dec 24, 2018 17:20
--- NOTE | 2018-12-24 19:04 | NUR ---
NURSE NOTES: Pt reports using a walker at home, currently is ambulating to/from restroom without assist with steady gait (refusing staff assistance), although feels slightly weak. Pt is requesting a walker to use while hospitalized for longer distance ambulation, stating "I want to walk down the hallway by myself with a walker".
--- NOTE | 2018-12-24 19:35 | NUR ---
NURSE NOTES: Received pt. and report from SUMI Arroyo. Observe pt. resting in bed with both eyes open. director independent is in placed, IV site intact, asymptomatic, and patent. Bed is in the lowest position and locked, call light within reach. No SOB or acute distress noted at this time. Will continue plan of care.
--- NOTE | 2018-12-24 19:43 | NUR ---
HAND-OFF: Report given to My RN. Pt is resting in bed, listening to music on her cellphone. Endorsed plan of care.
[2018-12-24 20:00] VITALS: BP 129/59
--- NOTE | 2018-12-24 21:16 | General Progress Note ---
Assessment/Plan Assessment/Plan cont nortriptyline cont ativan prn provided ro/st Subjective Neurologic/Psychiatric: Reports: anxiety, depressed, emotional problems Allergies: Coded Allergies: No Known Allergies (Unverified , 12/21/18) Objective Last 24 Hour Vital Signs Date Time Temp Pulse Resp B/P (MAP) Pulse Ox O2 Delivery O2 Flow Rate FiO2 12/24/18 19:25 Nasal Cannula 2.0 28 12/24/18 19:25 97 Nasal Cannula 2.0 28 12/24/18 19:25 83 16 Nasal Cannula 2.0 28 12/24/18 17:05 71 12/24/18 16:00 Venturi Mask 15.0 12/24/18 16:00 97.7 79 18 134/65 (88) 95 12/24/18 12:16 43 12/24/18 12:00 63 12/24/18 12:00 97.7 73 18 117/59 (78) 97 12/24/18 12:00 Venturi Mask 15.0 12/24/18 09:00 77 120/65 12/24/18 08:00 97.0 77 18 120/65 (83) 99 12/24/18 08:00 Venturi Mask 15.0 12/24/18 08:00 78 12/24/18 07:53 97 Nasal Cannula 2.0 28 12/24/18 07:53 70 18 Nasal Cannula 2.0 28 12/24/18 07:53 Nasal Cannula 2.0 28 12/24/18 04:00 71 12/24/18 04:00 Venturi Mask 15.0 12/24/18 04:00 98.0 77 15 134/65 (88) 95 12/24/18 00:00 Venturi Mask 15.0 12/24/18 00:00 80 12/24/18 00:00 97.9 72 11 122/61 (81) 97 Intake and Output 12/23/18 12/24/18 19:00 07:00 Output Total 1000 ml 800 ml Balance -1000 ml -800 ml Output Urine Total 1000 ml 800 ml # Voids 2 3 Laboratory Tests 12/24/18 03:21: White Blood Count 3.9L, Red Blood Count 4.14L, Hemoglobin 11.5L, Hematocrit 36.6L, Mean Corpuscular Volume 88, Mean Corpuscular Hemoglobin 27.7, Mean Corpuscular Hemoglobin Concent 31.3L, Red Cell Distribution Width 16.1H, Platelet Count 240, Mean Platelet Volume 5.4L, Neutrophils (%) (Auto) 79.4H, Lymphocytes (%) (Auto) 8.0L, Monocytes (%) (Auto) 8.2, Eosinophils (%) (Auto) 3.2H, Basophils (%) (Auto) 1.2, Sodium Level 141, Potassium Level 3.7, Chloride Level 102, Carbon Dioxide Level 36H, Anion Gap 3L, Blood Urea Nitrogen 16, Creatinine 1.3, Estimat Glomerular Filtration Rate , Glucose Level 98, Calcium Level 8.4L, Total Bilirubin 0.3, Aspartate Amino Transf (AST/SGOT) 26, Alanine Aminotransferase (ALT/SGPT) 17, Alkaline Phosphatase 108, Pro-B-Type Natriuretic Peptide 1587H, Total Protein 7.3, Albumin 2.7L, Globulin 4.6, Albumin/Globulin Ratio 0.6L Height (Feet): 5 Height (Inches): 2.00 Weight (Pounds): 126 Pari Prasad MD Dec 24, 2018 21:16
[2018-12-25] VITALS: BP 116/56
[2018-12-25 04:00] VITALS: BP 126/73
--- NOTE | 2018-12-25 07:15 | NUR ---
NURSE NOTES: Received pt. and report from SUMI Dickson. Observe pt. resting in bed with both eyes open. classroom monitor is in placed, IV site intact, asymptomatic, and patent. Bed is in the lowest position and locked, call light within reach. No SOB or acute distress noted at this time. Will continue plan of care.
[2018-12-25 07:19] LABS: BASOPHILS % (AUTO) 1.4 % (0.0-2.0); EOSINOPHILS % (AUTO) 3.3 % (0.0-3.0); HEMATOCRIT 35.4 % (37.0-47.0); HEMOGLOBIN 11.2 G/DL (12.0-16.0); LYMPHOCYTES % (AUTO) 7.1 % (20.0-45.0); MEAN CORPUSCULAR VOLUME 88 FL (80-99); MONOCYTES % (AUTO) 8.8 % (1.0-10.0); NEUTROPHILS % (AUTO) 79.4 % (45.0-75.0); PLATELET COUNT 234 K/UL (150-450); RED BLOOD COUNT 4.01 M/UL (4.20-5.40); RED CELL DISTRIBUTION WIDTH 16.3 % (11.6-14.8)
--- NOTE | 2018-12-25 07:26 | NUR ---
HAND-OFF: Report given to SUMI King.
[2018-12-25 07:40] LABS: ALANINE AMINOTRANSFERASE 15 U/L (12-78); ALBUMIN 2.9 G/DL (3.4-5.0); ALBUMIN/GLOBULIN RATIO 0.6 (1.0-2.7); ALKALINE PHOSPHATASE 112 U/L (46-116); ANION GAP 3 mmol/L (5-15); ASPARTATE AMINO TRANSFERASE 29 U/L (15-37); BILIRUBIN,TOTAL 0.4 MG/DL (0.2-1.0); BLOOD UREA NITROGEN 15 mg/dL (7-18); CALCIUM 8.6 MG/DL (8.5-10.1); CARBON DIOXIDE 36 MMOL/L (21-32); CHLORIDE 102 MMOL/L (98-107); CREATININE 1.1 MG/DL (0.55-1.30); POTASSIUM 3.4 MMOL/L (3.5-5.1); SODIUM 141 MMOL/L (136-145)
[2018-12-25 08:00] VITALS: BP 115/55
[2018-12-25 08:23] VITALS: BP 115/55
[2018-12-25] MEDS: chlordiazePOXIDE 25mg Cap ORAL SCH (08:24)
[2018-12-25] MEDS: Eliquis 2.5mg tablet ORAL SCH (08:24)
[2018-12-25] MEDS: Aspirin EC 81mg tab ORAL SCH (08:24)
[2018-12-25] MEDS: Nortriptyline 25mg cap ORAL SCH (08:24)
[2018-12-25] MEDS: Miralax 17gm pkt ORAL PRN (08:28)
[2018-12-25] MEDS ORDERED: FUROSEMIDE40 MG ORAL (11:39)
[2018-12-25] MEDS ORDERED: NORVASC2.5 MG ORAL (11:39)
--- NOTE | 2018-12-25 11:54 | Pulmonology Progress Note ---
Assessment/Plan Problems: (1) Acute respiratory failure (2) Pulmonary edema (3) Pleural effusion (4) NSTEMI (non-ST elevated myocardial infarction) (5) CAD (coronary artery disease) (6) Hx of CABG Assessment/Plan pt is on room air diuresed 3.7 liters so far watch bun/creatinine, stable norvasc was decreased CXR today showed less edema but effusion has decreased even more today continue Apixiban for now. CXR reviewed Subjective ROS Limited/Unobtainable: No Constitutional: Reports: no symptoms HEENT: Repors: no symptoms Respiratory: Reports: no symptoms Allergies: Coded Allergies: No Known Allergies (Unverified , 12/21/18) Objective Last 24 Hour Vital Signs Date Time Temp Pulse Resp B/P (MAP) Pulse Ox O2 Delivery O2 Flow Rate FiO2 12/25/18 08:23 76 115/55 12/25/18 08:21 Nasal Cannula 2.0 12/25/18 08:13 76 16 Nasal Cannula 2.0 28 12/25/18 08:13 Nasal Cannula 2.0 28 12/25/18 08:12 96 Nasal Cannula 2.0 28 12/25/18 08:00 97.7 73 20 115/55 (75) 94 12/25/18 07:50 67 12/25/18 04:00 81 12/25/18 04:00 98.1 72 18 126/73 (90) 96 12/25/18 00:00 97.9 65 18 116/56 (76) 98 12/25/18 00:00 68 12/24/18 20:00 72 12/24/18 20:00 Nasal Cannula 2.0 12/24/18 20:00 97.5 72 16 129/59 (82) 97 12/24/18 19:25 Nasal Cannula 2.0 28 12/24/18 19:25 97 Nasal Cannula 2.0 28 12/24/18 19:25 83 16 Nasal Cannula 2.0 28 12/24/18 17:05 71 12/24/18 16:00 Venturi Mask 15.0 12/24/18 16:00 97.7 79 18 134/65 (88) 95 12/24/18 12:16 43 12/24/18 12:00 63 12/24/18 12:00 97.7 73 18 117/59 (78) 97 12/24/18 12:00 Venturi Mask 15.0 Intake and Output 12/24/18 12/25/18 19:00 07:00 Intake Total 345 ml Output Total 1 ml Balance 344 ml Intake Oral 345 ml Output Urine Total 1 ml # Voids 2 1 Objective General Appearance: WD/WN Lines, tubes and drains: peripheral HEENT: normocephalic, atraumatic Neck: non-tender, normal alignment Respiratory/Chest: chest wall non-tender, lLLL rhonchi Breasts: no masses Cardiovascular/Chest: normal peripheral pulses, normal rate Abdomen: normal bowel sounds Genitourinary/Rectal: normal genital exam Extremities: normal range of motion Neurologic: collar trimmer II-XII grossly normal Laboratory Tests 12/25/18 06:55: White Blood Count 4.0L, Red Blood Count 4.01L, Hemoglobin 11.2L, Hematocrit 35.4L, Mean Corpuscular Volume 88, Mean Corpuscular Hemoglobin 28.0, Mean Corpuscular Hemoglobin Concent 31.7L, Red Cell Distribution Width 16.3H, Platelet Count 234, Mean Platelet Volume 5.3L, Neutrophils (%) (Auto) 79.4H, Lymphocytes (%) (Auto) 7.1L, Monocytes (%) (Auto) 8.8, Eosinophils (%) (Auto) 3.3H, Basophils (%) (Auto) 1.4, Sodium Level 141, Potassium Level 3.4L, Chloride Level 102, Carbon Dioxide Level 36H, Anion Gap 3L, Blood Urea Nitrogen 15, Creatinine 1.1, Estimat Glomerular Filtration Rate , Glucose Level 110H, Calcium Level 8.6, Total Bilirubin 0.4, Aspartate Amino Transf (AST/SGOT) 29, Alanine Aminotransferase (ALT/SGPT) 15, Alkaline Phosphatase 112, Pro-B-Type Natriuretic Peptide 1251H, Total Protein 7.7, Albumin 2.9L, Globulin 4.8, Albumin/Globulin Ratio 0.6L Current Medications Medications (Trade) Dose Ordered Sig/Analia Route PRN Reason Start Time Stop Time Status Last Admin Dose Admin Acetaminophen (Tylenol) 650 mg Q4H PRN ORAL Fever 12/24/18 08:18 01/20/19 08:17 Albuterol/ Ipratropium (Albuterol/ Ipratropium) 3 ml Q4H PRN HHN Shortness of Breath 12/24/18 08:18 12/26/18 08:17 Amlodipine Besylate (Norvasc) 2.5 mg DAILY ORAL 12/24/18 09:00 01/22/19 08:59 12/25/18 08:23 Apixaban (Eliquis) 2.5 mg BID ORAL 12/24/18 09:00 01/21/19 08:59 12/25/18 08:24 Aspirin (Ecotrin) 81 mg DAILY ORAL 12/24/18 09:00 01/21/19 08:59 12/25/18 08:24 Chlordiazepoxide (Librium) 25 mg DAILY ORAL 12/24/18 09:00 12/30/18 08:59 12/25/18 08:24 Dextrose (Dextrose 50%) 25 ml Q30M PRN IV Hypoglycemia 12/24/18 08:18 01/20/19 08:17 Dextrose (Dextrose 50%) 50 ml Q30M PRN IV Hypoglycemia 12/24/18 08:18 01/20/19 08:17 Furosemide (Lasix) 40 mg EVERY 8 HOURS IV 12/24/18 14:00 01/20/19 21:59 12/25/18 06:06 Nortriptyline HCl (Pamelor) 50 mg DAILY ORAL 12/24/18 09:00 01/21/19 08:59 12/25/18 08:24 Ondansetron HCl (Zofran) 4 mg Q6H PRN IVP Nausea & Vomiting 12/24/18 08:18 01/20/19 08:17 Polyethylene Glycol (Miralax) 17 gm DAILYPRN PRN ORAL Constipation 12/24/18 08:19 01/20/19 08:18 12/25/18 08:28 Temazepam (Restoril) 15 mg HSPRN PRN ORAL Insomnia 12/24/18 21:00 12/28/18 20:59 Mariya Amor MD Dec 25, 2018 11:54
--- NOTE | 2018-12-25 12:18 | NUR ---
*-* DISCHARGE PLANNING *-* PATIENT HAS BEEN REFERRED BACK TO: [facility] P:[phone] F:[phone]
--- NOTE | 2018-12-25 13:13 | NUR ---
Social Service Note DHIRAJ spoke with Nichol at [facility] [phone]. Facility will have transportation picker tender patient by 1515. DHIRAJ informed charge nurse.
--- NOTE | 2018-12-25 14:48 | NUR ---
Home Discharge: Patient is being discharged from medical care. Awake, alert and oriented x4. Discharge instructions given. ,Patient verbalized understanding of discharge instructions. All medical devices such as IV, heart monitor, and ID band were removed. Patient left via wheelchair with all personal belongings [facility] @14:45.
--- NOTE | 2018-12-25 14:57 | NUR ---
P.T Note: P.T evaluation completed and tx initiated. Please refer to P.T evaluation for current functional status. Skilled P.T service is warranted to increase his strength, balance and endurance to improve safety and independence with ADL/functional mobilities gait. Recommend DC to prior living arrangement with P.T follow up.
--- NOTE | 2018-12-25 15:56 | Diagnostic Imaging Report ---
Indication: Dyspnea Comparison: 12/24/2018 A single view chest radiograph was obtained. Findings: There is a left pleural effusion. Mechanical aortic valve noted. Sternotomy noted. Heart size is within normal limits. Bones are osteopenic. IMPRESSION: Left pleural effusion. No interval change
--- NOTE | 2018-12-25 16:37 | Physician Query ---
--------- THIS DOCUMENT IS A PERMANENT PART OF THE MEDICAL RECORD --------- PLEASE COMPLETE THE DOCUMENT BEFORE SIGNING Dear Dr. Kj MCKEON Date: 11/24/18 Online Education Manager/CDS Name: Reinaldo ALCANTAR Online Education Manager / CDS Phone # Exercise your independent professional judgment when responding to query. Question asked do not imply a particular answer is desired/expected Clinical Documentation States: "Severe shortness of breath, most likely secondary to acute CHF exacerbation and chronic with bilateral pleural effusion, left greater than the right." documented in Dr. Mckeon's H&P Clinical Findings Show: BNP = 3072, 2071, 1587, 1251 pg/ml Echocardiogram = LVEF = 55% Diuretic = Lasix 40 mg IV every 8 hours Please specify TYPE of ACUTE ON CHRONIC CHF: Type [] Systolic [x] Diastolic [] Systolic & Diastolic (Combined) [] Left Heart failure [] Other: Etiology [] CHF due to Hypertension [] Cardiomyopathy [x] Valvular Heart Disease [] Coronary Artery Disease [] Unable to determine [] Other: Condition Present on Admission: [x] Yes [] No [] Clinically Undeterminable Please also document in your Progress Notes and/or Discharge Summary and indicate if the condition was present on admission. TRAY MCKEON M.D. DATE & [facility]
--- NOTE | 2018-12-25 16:44 | Internal Med Progress Note ---
Subjective Date of Service: Dec 25, 2018 Physician Name Arturo Vogt Attending Physician Moustapha Mckeon MD Current Medications Medications (Trade) Dose Ordered Sig/Analia Route PRN Reason Start Time Stop Time Status Last Admin Dose Admin Acetaminophen (Tylenol) 650 mg Q4H PRN ORAL Fever 12/24/18 08:18 01/20/19 08:17 Albuterol/ Ipratropium (Albuterol/ Ipratropium) 3 ml Q4H PRN HHN Shortness of Breath 12/24/18 08:18 12/26/18 08:17 Amlodipine Besylate (Norvasc) 2.5 mg DAILY ORAL 12/24/18 09:00 01/22/19 08:59 12/25/18 08:23 Apixaban (Eliquis) 2.5 mg BID ORAL 12/24/18 09:00 01/21/19 08:59 12/25/18 08:24 Aspirin (Ecotrin) 81 mg DAILY ORAL 12/24/18 09:00 01/21/19 08:59 12/25/18 08:24 Chlordiazepoxide (Librium) 25 mg DAILY ORAL 12/24/18 09:00 12/30/18 08:59 12/25/18 08:24 Dextrose (Dextrose 50%) 25 ml Q30M PRN IV Hypoglycemia 12/24/18 08:18 01/20/19 08:17 Dextrose (Dextrose 50%) 50 ml Q30M PRN IV Hypoglycemia 12/24/18 08:18 01/20/19 08:17 Furosemide (Lasix) 40 mg EVERY 8 HOURS IV 12/24/18 14:00 01/20/19 21:59 12/25/18 06:06 Nortriptyline HCl (Pamelor) 50 mg DAILY ORAL 12/24/18 09:00 01/21/19 08:59 12/25/18 08:24 Ondansetron HCl (Zofran) 4 mg Q6H PRN IVP Nausea & Vomiting 12/24/18 08:18 01/20/19 08:17 Polyethylene Glycol (Miralax) 17 gm DAILYPRN PRN ORAL Constipation 12/24/18 08:19 01/20/19 08:18 12/25/18 08:28 Temazepam (Restoril) 15 mg HSPRN PRN ORAL Insomnia 12/24/18 21:00 12/28/18 20:59 Allergies: Coded Allergies: No Known Allergies (Unverified , 12/21/18) ROS Limited/Unobtainable: No Constitutional: Reports: no symptoms HEENT: Reports: no symptoms Cardiovascular: Reports: no symptoms Respiratory: Reports: shortness of breath Gastrointestinal/Abdominal: Reports: no symptoms Genitourinary: Reports: no symptoms Neurologic/Psychiatric: Reports: no symptoms Subjective 83 YO F admitted with shortness of breath. Now CHF. Cover for Int Chace-Dr Mckeon. Tolerating nasal canula Objective Last Vital Signs Date Time Temp Pulse Resp B/P (MAP) Pulse Ox O2 Delivery O2 Flow Rate FiO2 12/25/18 08:23 76 115/55 12/25/18 08:21 Nasal Cannula 2.0 12/25/18 08:13 16 28 12/25/18 08:12 96 12/25/18 08:00 97.7 Laboratory Tests Test 12/25/18 06:55 White Blood Count 4.0 K/UL (4.8-10.8) L Red Blood Count 4.01 M/UL (4.20-5.40) L Hemoglobin 11.2 G/DL (12.0-16.0) L Hematocrit 35.4 % (37.0-47.0) L Mean Corpuscular Volume 88 FL (80-99) Mean Corpuscular Hemoglobin 28.0 PG (27.0-31.0) Mean Corpuscular Hemoglobin Concent 31.7 G/DL (32.0-36.0) L Red Cell Distribution Width 16.3 % (11.6-14.8) H Platelet Count 234 K/UL (150-450) Mean Platelet Volume 5.3 FL (6.5-10.1) L Neutrophils (%) (Auto) 79.4 % (45.0-75.0) H Lymphocytes (%) (Auto) 7.1 % (20.0-45.0) L Monocytes (%) (Auto) 8.8 % (1.0-10.0) Eosinophils (%) (Auto) 3.3 % (0.0-3.0) H Basophils (%) (Auto) 1.4 % (0.0-2.0) Sodium Level 141 MMOL/L (136-145) Potassium Level 3.4 MMOL/L (3.5-5.1) L Chloride Level 102 MMOL/L (98-107) Carbon Dioxide Level 36 MMOL/L (21-32) H Anion Gap 3 mmol/L (5-15) L Blood Urea Nitrogen 15 mg/dL (7-18) Creatinine 1.1 MG/DL (0.55-1.30) Estimat Glomerular Filtration Rate mL/min (>60) Glucose Level 110 MG/DL (74-106) H Calcium Level 8.6 MG/DL (8.5-10.1) Total Bilirubin 0.4 MG/DL (0.2-1.0) Aspartate Amino Transf (AST/SGOT) 29 U/L (15-37) Alanine Aminotransferase (ALT/SGPT) 15 U/L (12-78) Alkaline Phosphatase 112 U/L (46-116) Pro-B-Type Natriuretic Peptide 1251 pg/mL (0-125) H Total Protein 7.7 G/DL (6.4-8.2) Albumin 2.9 G/DL (3.4-5.0) L Globulin 4.8 g/dL Albumin/Globulin Ratio 0.6 (1.0-2.7) L Intake and Output 12/24/18 12/25/18 19:00 07:00 Intake Total 345 ml Output Total 1 ml Balance 344 ml Intake Oral 345 ml Output Urine Total 1 ml # Voids 2 1 Objective PHYSICAL EXAMINATION: GENERAL: The patient is awake and responsive. No acute distress. HEAD AND NECK: Pupils are reactive to light. Extraocular movements are intact. Neck was supple. No JVD. LUNGS: Decreased air in the bases. No wheezes. No rhonchi. HEART: S1 and S2. Regular rhythm. Systolic ejection murmur was noted in the aortic valve. No hives or thrills. ABDOMEN: Soft, nondistended, and nontender. Positive bowel sounds. EXTREMITIES: No cyanosis, clubbing, or edema. Hyperpigmentation and mild erythema around the ankle area. NEUROLOGIC: Cranial nerves II through XII grossly intact. Motor is 5/5 in all extremities. Gait was not assessed due to the patient's status. RECTAL: Refused and deferred. GENITOURINARY: Refused and deferred. PSYCHIATRIC: Mood and affect are intact. Assessment/Plan Status: progressing Assessment/Plan ASSESSMENT: 1. Severe shortness of breath, most likely secondary to acute CHF exacerbation and chronic with bilateral pleural effusion, left greater than the right. 2. History of mitral valve bioprosthetic valve replacement. 3. Aortic stenosis. 4. History of coronary artery disease, status post CABG x2 vessels. 5. Systemic hypertension. 6. Pulmonary hypertension. 7. Anxiety. 8. Carotid stenosis. 9. Mild anemia. 10. Elevated troponin, most likely secondary to demand ischemia. PLAN: Med/surg Dr. Mike Long from Cardiology-see note Dr. Amor, Pulmonary Critical Care-see note anticoagulation DVT prophylaxis with Eliquis Code status is Full Code. Lasix IV. Nebulizer treatment as needed. We will resume home medication and we will consider the patient to stay in the hospital greater than 2 days. Arturo Vogt MD Dec 25, 2018 16:44
--- NOTE | 2018-12-25 21:35 | General Progress Note ---
Assessment/Plan Problem List: (1) MDD (major depressive disorder), recurrent episode, moderate ICD Codes: F33.1 - Major depressive disorder, recurrent, moderate SNOMED: 88055201, 209650866 (2) Anxiety disorder ICD Codes: F41.9 - Anxiety disorder, unspecified SNOMED: 370374772 Assessment/Plan cont nortriptyline cont ativan prn provided ro/st Subjective Neurologic/Psychiatric: Reports: anxiety, depressed, emotional problems Allergies: Coded Allergies: No Known Allergies (Unverified , 12/21/18) Objective Last 24 Hour Vital Signs Date Time Temp Pulse Resp B/P (MAP) Pulse Ox O2 Delivery O2 Flow Rate FiO2 12/25/18 08:23 76 115/55 12/25/18 08:21 Nasal Cannula 2.0 12/25/18 08:13 76 16 Nasal Cannula 2.0 28 12/25/18 08:13 Nasal Cannula 2.0 28 12/25/18 08:12 96 Nasal Cannula 2.0 28 12/25/18 08:00 97.7 73 20 115/55 (75) 94 12/25/18 07:50 67 12/25/18 04:00 81 12/25/18 04:00 98.1 72 18 126/73 (90) 96 12/25/18 00:00 97.9 65 18 116/56 (76) 98 12/25/18 00:00 68 Intake and Output 12/24/18 12/25/18 18:59 06:59 Intake Total 345 ml Output Total 1 ml Balance 344 ml Intake Oral 345 ml Output Urine Total 1 ml # Voids 2 1 Laboratory Tests 12/25/18 06:55: White Blood Count 4.0L, Red Blood Count 4.01L, Hemoglobin 11.2L, Hematocrit 35.4L, Mean Corpuscular Volume 88, Mean Corpuscular Hemoglobin 28.0, Mean Corpuscular Hemoglobin Concent 31.7L, Red Cell Distribution Width 16.3H, Platelet Count 234, Mean Platelet Volume 5.3L, Neutrophils (%) (Auto) 79.4H, Lymphocytes (%) (Auto) 7.1L, Monocytes (%) (Auto) 8.8, Eosinophils (%) (Auto) 3.3H, Basophils (%) (Auto) 1.4, Sodium Level 141, Potassium Level 3.4L, Chloride Level 102, Carbon Dioxide Level 36H, Anion Gap 3L, Blood Urea Nitrogen 15, Creatinine 1.1, Estimat Glomerular Filtration Rate , Glucose Level 110H, Calcium Level 8.6, Total Bilirubin 0.4, Aspartate Amino Transf (AST/SGOT) 29, Alanine Aminotransferase (ALT/SGPT) 15, Alkaline Phosphatase 112, Pro-B-Type Natriuretic Peptide 1251H, Total Protein 7.7, Albumin 2.9L, Globulin 4.8, Albumin/Globulin Ratio 0.6L Height (Feet): 5 Height (Inches): 2.00 Weight (Pounds): 55 General Appearance: WD/WN, no apparent distress, alert Neurologic: oriented x 3, responsive, depressed affect Pari Prasad MD Dec 25, 2018 21:35
--- NOTE | 2018-12-25 21:47 | Diagnostic Imaging Report ---
APPROVED REPORT CPT Code: 20537 Present Symptoms Comments: Pain BILATERAL: Imaging reveals a patent deep venous system bilaterally. There is no evidence of thrombus within the common femoral, superficial femoral, popliteal or tibial segments. The greater saphenous veins are also within normal limits. Doppler indicates normal spontaneous flow within these segments.
--- NOTE | 2018-12-28 07:40 | Discharge Summary ---
Discharge Summary Discharge Summary _ DATE OF ADMISSION: 12/21/2018 DATE OF DISCHARGE: 12/25/2018 DISCHARGED BY: Dr. Mckeon REASON FOR ADMISSION: 83 years old female with past medical history significant for coronary artery disease, status post coronary artery bypass graft x2, history of bioprosthetic mitral valve replacement, dyslipidemia, aortic stenosis, permanent atrial fibrillation, presented to emergency department with shortness of breath Patient reported three weeks of increasing shortness of breath with bilateral lower extremity edema and orthopnea. Her primary care provider told her that that she had a congestive heart failure and advised her to come to the emergency room for further evaluation and management. Patient was on Lasix 10 mg daily , but felt it was not strong enough for her. Vital signs patient requires supplemental oxygen 4 L to reach pulse oximetry 96% . Laboratory workup revealed no leukocytosis, hemoglobin 11.2 hematocrit 35.9. Stable electrolytes, BUN 23, creatinine 1.2. Troponin - 0.068. EKG revealed atrial fibrillation with controlled ventricular response. Pro BNP 3072. Albumin 3.1. Urinalysis revealed no evidence of UTI. Chest x-ray revealed large left and possible small right pleural effusion. Interstitial changes. After evaluation in emergency department , patient was admitted to the hospital with for shortness of breath , most likely secondary to acute CHF exacerbation pleural effusion. CONSULTANTS: dental professional Dr. Long pulmonary Dr. Amor psychiatrist [facility] COURSE: Patient admitted to direct observational unit. Patient started on diuretic with close monitoring of volumes and cardiorenal parameters. Serial troponin were trended. Certified Legal Secretary Specialist followed. Echocardiogram revealed preserved ejection fraction 55% with mild left ventricular hypertrophy. Large pleural effusion noted. Aortic stenosis noted. Moderately elevated left atrial pressure grade 2. Mild to moderate mitral regurgitation. Right ventricular systolic pressure of 104 consistent with severe pulmonary hypertension. Patient had an ischemia evaluation with stress test in March 2018 , reportedly negative, but details were unknown. Venous duplex bilateral lower extremity revealed no evidence of acute DVT. Patient was on anticoagulation with Eliquis for permanent atrial fibrillation. Heart rate controlled. Blood pressure was managed with calcium channel patrice, dose was decreased to allow for adequate diuresis. Antiplatelet therapy with aspirin provided. Nitroglycerin was on board as needed. Elevated troponin was likely due to demand ischemia, brought in by acute CHF exacerbation Pro BNP trended down from initial 3072 to 1251 upon discharge. Last two troponin were negative. Supplemental oxygen provided to keep pulse oximetry above 92%. Pulmonary toilet provided. As patient clinically improved, she was able to be weaned from 4 L of oxygen via nasal cannula to 2 L. Patient was followed-up with chest x-ray to monitor for pleural effusion in response to diuresis. Recommended outpatient follow-up with hospital aides and assistants teacher for management for severe pulmonary hypertension. Renal parameters and electrolytes were closely monitored, electrolytes corrected as needed. Supportive care provided. Bowel regimen instituted. Pain management addressed as needed. Psychiatrist seen and evaluated patient and diagnosed patient with major depressive disorder and anxiety disorder. Patient was continued on nortriptyline. Reality orientation and supportive therapy provided. Patient clinically stabilized: no further shortness of breath, no chest pain. Patient was ready for transfer back to assisted living for further management. FINAL DIAGNOSIS Severe shortness of breath most likely due to acute CHF exacerbation Acute on chronic congestive heart failure with moderate diastolic dysfunction due to valvular heart disease Elevated troponin, most likely secondary to demand ischemia Permanent atrial fibrillation Aortic stenosis History of bioprosthetic mitral valve replacement History of coronary artery disease, status post CABG x2 Severe pulmonary hypertension Systemic hypertension Chronic bilateral effusions left greater than right Carotid stenosis Anxiety disorder Major depressive disorder DISCHARGE MEDICATIONS: See Medication Reconciliation list. DISCHARGE INSTRUCTIONS: Patient was discharged to [facility]. Follow-up with primary medical doctor in one week. I have been assigned to dictate discharge summary for this account. I was not involved in the patient's management. China Zaragoza NP Dec 28, 2018 07:40
== END 2018-12-25 14:45 | DRG 280 ==
LOC: EDBD 13:31 → EMR 13:55 → EDBEDREQ 14:38 → EDBEDREQSVC 14:38 → 2W 14:45 → EDBEDREQ 15:37 → 2E 12-24 07:18
DX: I11.0 Hypertensive heart disease with heart failure (principal); J96.00 Acute respiratory failure, unspecified whether with hypoxia or hypercapnia; I21.A1 Myocardial infarction type 2; I50.33 Acute on chronic diastolic (congestive) heart failure; I48.2 Chronic atrial fibrillation; Z79.01 Long term (current) use of anticoagulants; I10 Essential (primary) hypertension; I27.20 Pulmonary hypertension, unspecified; I25.10 Atherosclerotic heart disease of native coronary artery without angina pectoris; Z95.1 Presence of aortocoronary bypass graft; Z95.4 Presence of other heart-valve replacement; I35.0 Nonrheumatic aortic (valve) stenosis; F41.9 Anxiety disorder, unspecified; D64.9 Anemia, unspecified; Z85.42 Personal history of malignant neoplasm of other parts of uterus; Z92.3 Personal history of irradiation; I65.23 Occlusion and stenosis of bilateral carotid arteries; Z87.891 Personal history of nicotine dependence; F32.9 Major depressive disorder, single episode, unspecified
CPT/HCPCS: 36415; 71045; 80048; 80053; 80069; 81003; 82550; 83880; 84484; 85025; 85610; 85730; 87081; 93005; 93306; 93970; 94664; 94760; 96374; 99285